=== PATIENT | male | born 1940 ===

== ENCOUNTER 2025-07-30 21:23 | Emergency (ER) | payer MEDICARE, SELFPAY ==
--- OUTSIDE RECORDS SUMMARY | 2025-02-23 10:15 | XMS_ITS ---
Author Organization Ruma Tuttle MD Address [address] [place] [phone] Care Team Providers Care General Hardware Salesperson Name Role Phone Ruma Tuttle Primary Care Provider [phone] REASON FOR VISIT Elevated renal labs Encounters Encounter Location Date Provider Diagnosis Ruma Tuttle MD [address] [place] [address] [place] [phone] 02/23/2025 Ruma Tuttle Plan Of Treatment Next Appt Details Provider Name:Ruma Tuttle , 08/03/2025 01:30:00 PM, [address] [place] [address], [place] [address], [place], [place], [phone], Progress Notes * Baltazar GONZALEZDOB: (85 yo M)Acc No.[id number]:02/23/2025 Progress Notes Patient: Baltazar STEEN Provider: Francisco Javier Tuttle MD :1940 A ge:85 Y S ex:Male Date:02/23/2025 Address:[address] [place] [address] Subjective: * Chief Complaints: * 1 . Elevated renal labs. * Medical History: Objective: * Vitals: Past Vitals:* 01/12/2025 Temp:96.8F, HR:80/min, BP: O wn Machine: 100/53 mm Hg,Sitting Right Arm: 114/56mm Hg, Wt: 179 lbs,172lbs, BMI:23.49Index, Ht:71.75in, Oxygen sat %:98% * 07/11/2024 Temp:96.0F, HR:82/min, BP:Si tting Right Arm: 118/54mm Hg, Wt:179.8lbs, BMI:24.55Index, Ht:71.75in, Oxygen sat %:98% * 03/03/2024 BP:Sitting Right Arm: 118/56 mm Hg, Wt:175.25lbs, BMI:23.93Index, Ht:71.75in Assessment: Plan: * Treatment: * Images: Billing Information: * Visit Code: * Procedure Codes: * Electronic signature of Chelly Tuttle MD on 07/30/2025 at 09:51 PM EST Sign off status: Pending * Provider: Francisco Javier Tuttle MD Date: 0 02/23/2025 Generated for Yasmany garcia/Manuela/Radha on: 1 09/29/2024 09:51 PM EST
--- OUTSIDE RECORDS SUMMARY | 2025-03-18 09:15 | XMS_ITS ---
Author Organization Ruma Tuttle MD Address [address] [place] [phone] Care Team Providers Care Strap Setter Name Role Phone Ruma Tuttle Primary Care Provider REASON FOR VISIT Elevated labs Encounters Encounter Location Date Provider Diagnosis Ruma Tuttle MD [address] [place] [address] [place] [phone] 03/18/2025 Ruma Tuttle Plan Of Treatment Next Appt Details Provider Name:Ruma Tuttle , 08/03/2025 01:30:00 PM, [address] [place] [address], [address], [phone], Progress Notes * Baltazar GONZALEZDOB: (85 yo M)Acc No.[id number]:03/18/2025 Progress Notes Patient: Baltazar STEEN Provider: Francisco Javier Tuttle MD :1940 A ge:85 Y S ex:Male Date:03/18/2025 Address:[address] [place] [address] Subjective: * Chief Complaints: * 1 . [...] 03/18/2025 Generated for Yasmany garcia/Manuela/Radha on: 1 09/29/2024 09:51 PM EST
--- NOTE | ~2025-07-30 | XR_ITS ---
CLINICAL HISTORY: index finger shut in car door 3 view left hand Comparison: None provided Findings: Linear oblique lucency of the distal phalanx of the 2nd digit. Associated soft tissue swelling. No erosions. No radiopaque foreign body. IMPRESSION: 1. Possible nondisplaced oblique fracture of the distal phalanx of the 2nd digit. This document has been electronically signed by: Yue Matos MD on 07/30/2025 22:35:45
[2025-07-30 21:30] VITALS: BP 145/60; PULSE 90; RESP 18; TEMP 36.1; O2SAT 97; BMI 23.4
--- OUTSIDE RECORDS SUMMARY | 2025-07-30 21:52 | XMS_ITS | Patient Health Record ---
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 Clerk Name Role Phone Ruma Tuttle Primary Care Provider [phone] Mari Tavares Unavailable [phone] Allergies No Known Allergies Results Component Value Reference Range Notes Vitamin D, [id number] Reviewed date:01/14/2025 06:50:40 PM Interpretation: Performing Lab:[facility], [place] [facility], Phone - [phone], Director - Silva Notes/Report: Vitamin D, 25-Hydroxy 19.1 30.0-100.0 ng/mL Vitamin D deficiency has been defined by the [place] of [employer] and an Endocrine Society practice guideline as a level of serum 25-OH vitamin D less than 20 ng/mL (1,2). The Endocrine Society went on to further define vitamin D insufficiency as a level between 21 and 29 ng/mL (2). 1. IOM ([place] of [employer]). 2010. Dietary reference intakes for calcium and D. [place]: The National Academies Press. 2. Alissa MF, Michael NC, Jo Ann-Gabriel RODRIGUES, et al. Evaluation, treatment, and prevention of vitamin D deficiency: an Endocrine Society clinical practice guideline. JCEM. 2010; 96(7):1911-30. Urinalysis, Complete-[id number] Reviewed date:01/14/2025 06:50:40 PM Interpretation: Performing Lab:[facility] [place], [address] [facility], [place], Phone - [phone], Director - Silva Notes/Report: Specific [place] 1.018 1.005-1.030 pH 5.5 5.0-7.5 Urine-Color Yellow Yellow Appearance Clear Clear WBC Esterase Negative Negative Protein Negative Negative/Trace Glucose Negative Negative Ketones Negative Negative Occult Blood Negative Negative Bilirubin Negative Negative Urobilinogen,Semi-Qn 0.2 0.2-1.0 mg/dL Nitrite, Urine Negative Negative Microscopic Examination Micr oscopic follows if indicated. Microscopic Examination See below: Micr oscopic was indicated and was performed. WBC None seen 0 - 5 /hpf RBC None seen 0 - 2 /hpf Epithelial Cells (non renal) None seen 0 - 10 /hpf Casts None seen None seen /lpf Bacteria None seen None seen/Few Hemoglobin [id number] Reviewed date:01/14/2025 06:50:40 PM Interpretation: Performing Lab:[facility] C[facility] [address] [place] [address], Phone - [phone], Director - MDLoredry Notes/Report: Hemoglobin A1c 5.7 4.8-5.6 % . Prediabetes: 5.7 - 6.4 Diabetes: >6.4 Glycemic control for adults with diabetes: <7.0 Cystatin C with eGFR-[id number] Reviewed date:01/14/2025 06:50:40 PM Interpretation: Performing Lab:[facility] [address] [place] [address], Phone - [phone], Director - Silva Notes/Report: Cystatin C 2.11 0.87-1.12 mg/L eGFR 26 >59 mL/min/1.73 Albumin/Creatinine Ratio,Uri ne-[id number] Reviewed date:01/14/2025 06:50:40 PM Interpretation: Performing Lab:[facility] [place] [address] [place] [address], Phone - [phone], Director - MDJodry Notes/Report: Creatinine, Urine 79.1 Not Estab. mg/dL Albumin, Urine 3.0 Not Estab. ug/mL Alb/Creat Ratio 4 0-29 mg/g creat Normal: 0 - 29 Moderately increased: 30 - 300 Severely increased: >300 Comp. Metabolic Panel (14)-3 [id number] Reviewed date:01/14/2025 06:50:40 PM Interpretation: Performing Lab:[facility] [place] [address] [place] [address], Phone - [phone], Director - MDJodry Notes/Report: Glucose 85 70-99 mg/dL BUN 45 8-27 mg/dL Creatinine 1.69 0.76-1.27 mg/dL eGFR 39 >59 mL/min/1.73 BUN/Creatinine Ratio 27 10-24 Sodium 136 134-144 mmol/L Potassium 5.2 3.5-5.2 mmol/L Chloride 104 96-106 mmol/L Carbon Dioxide, Total 17 20-29 mmol/L Calcium 9.5 8.6-10.2 mg/dL Protein, Total 6.6 6.0-8.5 g/dL Albumin 4.2 3.7-4.7 g/dL Globulin, Total 2.4 1.5-4.5 g/dL Bilirubin, Total 0.3 0.0-1.2 mg/dL Alkaline Phosphatase 88 44-121 IU/L AST (SGOT) 10 0-40 IU/L ALT (SGPT) 11 0-44 IU/L LP+Non-HDL Cholesterol-[id number] 5 Reviewed date:01/14/2025 06:50:40 PM Interpretation: Performing Lab:[facility] [place], [address] [place] [address], Phone - [phone], Director - Silva Notes/Report: Cholesterol, Total 184 100-199 mg/dL Triglycerides 113 0-149 mg/dL HDL Cholesterol 61 >39 mg/dL VLDL Cholesterol Jaret 20 5-40 mg/dL LDL Chol Calc (NIH) 103 0-99 mg/dL Non-HDL Cholesterol 123 0-129 mg/dL Immunofixation, Serum-[id number] Reviewed date:02/06/2025 01:47:45 PM Interpretation: Performing Lab:[facility] [place], [address] [place] [address], Phone - [phone], Director - Juany Notes/Report: Immunofixation Result, Serum The immunofixation pattern appears unremarkable. Evidence of monoclonal protein is not apparent. Immunoglobulin G, Qn, Serum 5903 573-0481 mg/d L Immunoglobulin A, Qn, Serum 276 61-437 mg/dL Immunoglobulin M, Qn, Serum 52 15-143 mg/dL Complement C4, Serum-[id number] Reviewed date:02/06/2025 01:47:45 PM Interpretation: Performing Lab:[facility] [place], [address] [place] [address], Phone - [phone], Director - Jodry Notes/Report: Complement C4, Serum 22 12-38 mg/dL Complement C3, Serum-[id number] Reviewed date:02/06/2025 01:47:45 PM Interpretation: Performing Lab:[email or web address] [place], [address] [place] [address], Phone - [phone], [facility] Notes/Report: Complement C3, Serum 110 82-167 mg/dL Immunofixation, Urine-[id number] Reviewed date:02/06/2025 01:47:46 PM Interpretation: Performing Lab:[facility] [place], [address] [place] [address], Phone - [phone], [facility] Notes/Report: YEISON Interpretation:U The immunofixation pattern appears unremarkable. Evidence of monoclonal protein is not apparent. CLAUDY by IFA Rfx Titer/Pattern -[id number] Reviewed date:02/06/2025 01:47:46 PM Interpretation: Performing [facility], [address] [place] [address], Phone - [phone], [facility] Notes/Report: CLAUDY by IFA Rfx Titer/Pattern Negative Negative <1:80 Borderline 1:80 Positive >1:80 ICAP nomenclature: AC-0 For more information about Hep-2 cell patterns use ANApatterns.org, the official website for the International Consensus on Antinuclear Antibody (CLAUDY) Patterns (ICAP). ANCA Profile (RDL)-[id number] Reviewed date:02/06/2025 01:47:46 PM Interpretation: Performing Lab:[facility], [address] [place] [address], Phone - [phone], [facility] Notes/Report: ANCA by IFA (RDL) Negative Negative Anti-MPO Ab (RDL) <20 <20 Units Anti-AK-3 Ab (RDL) 24 <20 Units US Renal Reviewed date:02/18/2025 06:36:49 PM Interpretation: Performing Lab: Notes/Report: Original Report PROCEDURE: US RENAL INDICATION: Chronic kidney disease stage 3B. TECHNIQUE: Ultrasound of the kidneys. COMPARISON: None Available. FINDINGS: The right kidney measures 10.6 cm in length. Renal cortical echotexture is increased. There is no hydronephrosis. There are no stones. There are multiple cysts with the largest located within the upper pole and measuring 3.0 x 2.4 x 2.5 cm. The left kidney measures 12.8 cm in length. Renal cortical echotexture is increased. There is no hydronephrosis. There are no stones. There are multiple cysts with the largest located within the lower pole and measuring 8.5 x 5.5 x 6.3 cm. The bladder is partially distended. IMPRESSION: Normal size kidneys. Increased echogenicity of the renal cortices most suggestive of intrinsic renal disease. No hydronephrosis. Bilateral renal cysts, the largest located within the left kidney and measuring 8.5 x 5.5 x 6.3 cm. Frankie Johnson MD Signed by Frankie Johnson MD Read by: FRANKIE JOHNSON II, MD Reviewed and Electronically Signed by: FRANKIE JOHNSON II, MD Urinalysis, Complete-[id number] Reviewed date:02/18/2025 06:36:48 PM Interpretation: Performing Lab:[facility] [place], [address] [facility], Phone - [phone], Director - Silva Notes/Report: Specific [place] 1.016 1.005-1.030 pH 6.0 5.0-7.5 Urine-Color Yellow Yellow Appearance Clear Clear WBC Esterase Negative Negative Protein Trace Negative/Trace Glucose Negative Negative Ketones Negative Negative Occult Blood Negative Negative Bilirubin Negative Negative Urobilinogen,Semi-Qn 0.2 0.2-1.0 mg/dL Nitrite, Urine Negative Negative Microscopic Examination Micr oscopic follows if indicated. Microscopic Examination See below: Micr oscopic was indicated and was performed. WBC None seen 0 - 5 /hpf RBC 0-2 0 - 2 /hpf Epithelial Cells (non renal) None seen 0 - 10 /hpf Casts None seen None seen /lpf Bacteria None seen None seen/Few Albumin/Creatinine Ratio,Uri ne-[id number] Reviewed date:02/18/2025 06:36:49 PM Interpretation: Performing Lab:[facility] [place], [address] [facility], [place], Phone - [phone], Director - MDJodry Notes/Report: Creatinine, Urine 73.4 Not Estab. mg/dL Albumin, Urine 10.3 Not Estab. ug/mL Alb/Creat Ratio 14 0-29 mg/g creat Normal: 0 - 29 Moderately increased: 30 - 300 Severely increased: >300 Comp. Metabolic Panel (14)-3 Reviewed date:02/18/2025 06:36:49 PM Interpretation: Performing Lab:[facility] [place], [address], [place], Phone - [phone], Director - Silva Notes/Report: Glucose 86 70-99 mg/dL BUN 29 8-27 mg/dL Creatinine 1.42 0.76-1.27 mg/dL eGFR 48 >59 mL/min/1.73 BUN/Creatinine Ratio 20 10-24 Sodium 140 134-144 mmol/L Potassium 4.7 3.5-5.2 mmol/L Chloride 106 96-106 mmol/L Carbon Dioxide, Total 21 20-29 mmol/L Calcium 9.4 8.6-10.2 mg/dL Protein, Total 6.5 6.0-8.5 g/dL Albumin 4.1 3.7-4.7 g/dL Globulin, Total 2.4 1.5-4.5 g/dL Bilirubin, Total 0.3 0.0-1.2 mg/dL Alkaline Phosphatase 95 44-121 IU/L AST (SGOT) 12 0-40 IU/L ALT (SGPT) 16 0-44 IU/L Reason For Referral No Information Medications Medication SIG (Take, Route, Frequency, Duration) Notes Start Date End Date Status Latanoprost 0.005 % PLACE 1 DROP IN EACH EYE AT BEDTIME Ophthalmic; Duration: 20 Active Farxiga 10 MG 1 tablet Orally Once a day; Duration: 30 day(s) 03/26/2025 09/22/2025 Active Dorzolamide HCl 2 % INSTILL 1 DROP IN TH E RIGHT EYE TWO TIMES A DAY Ophthalmic; Duration: 80 Active Valium 2 MG 1 tablet Orally Once a day; Duration: 14 days As needed 07/07/2025 Active Brimonidine-Dorzolamide 0.15-2 % as directed Ophthalmic Activ e Viagra 100 MG 1 tablet Orally Once a day; Duration: 10 days As needed Active Ramipril 10 MG 1 capsule Orally Onc e a day; Duration: 90 days Active amLODIPine Besylate 5 MG 1 tablet Orally Once a day; Duration: 30 days 02/26/2025 Active Immunizations Vaccine Route Administration Date Status Comme nts *Wxjegcctq-Nxcqfbt-Lrgp Dose-65+ IM Intramuscular 07/11/2024 Administered *Influenza-Medicare-AS Unknown 08/18/2019 Refused *Influenza-Medicare-AS IM Intramuscular 06/07/2021 Adminis tered *Influenza-Medicare-AS Unknown 06/05/2022 Refused *Influenza-Medicare-AS IM Intramuscular 06/26/2022 Adminis tered *Influenza-Quadrivalent IM Intramuscular 07/09/2023 Admini stered *PREVNAR 20 IM Intramuscular 07/11/2024 Administered *Tdap Unknown 08/30/2016 Administered COVID 19 (Pfizer 12+) Unknown 02/28/2022 Administered COVID COMIRNATY Pfizer Unknown 09/12/2023 Administered COVID-19 Pfizer BiValent Booster Unknown 06/02/2022 Administered BTNSX-25-Hqfzvi Vaccine Unknown 10/11/2020 Administered XRMVD-27-Qdtbkr Vaccine Unknown 11/01/2020 Administered XUHZQ-47-Qzwevd Vaccine Unknown 06/17/2021 Administered Influenza Unknown 07/07/2020 Administered Influenza-Afluria (IIV4) IM Intramuscular 08/17/2017 Admin istered Pneumococcal polysaccharide PCV 13 IM Intramuscular 11/20/2016 Administered Pneumococcal polysaccharide PPV23 IM Intramuscular 06/07/2021 Administered Social History Tobacco Use: Social History Observation Description Date Details (start date - stop date) Former Smoker NA - NA AUDIT-C (Standard) Question Answer Notes Did you have a drink contain ing alcohol in the past year? Yes How often did you have six o r more drinks on one occasion in the past year? Never (0 point) How many drinks did you have on a typical day when you were drinking in the past year? 1 or 2 drinks (0 point) How often did you have a dri nk containing alcohol in the past year? 2 to 3 times a week (3 points) Points 3 Interpretation Negative Tobacco Control (Standard) Question Answer Notes Tobacco use: Former smoker How long has it been since you last smoked? 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 Problem Anxiety disorder (327875361) Anxiety disorder, unspecified (F41.9) Active confirmed Problem Acute stress reaction (04523274) Acute stress reaction (F43.0) Active confirmed Problem Adjustment disorder with depressed mood (40535643) Adjustment disorder with depressed mood (F43.21) Active confirmed Problem Sensorineural hearing loss of bilateral ears (disorder) (635261143) Sensorineural hearing loss, bilateral (H90.3) Active confirmed Problem Chronic kidney disease due to hypertension (010555343004236) Hypertensive chronic kidney disease with stage 1 through stage 4 chronic kidney disease, or unspecified chronic kidney disease (I12.9) Active confirmed Problem Atrial premature depolarization (334299228) Atrial premature depolarization (I49.1) Active confirmed Problem Ventricular premature depolarization (019588828) Ventricular premature depolarization (I49.3) Active confirmed Problem Erectile dysfunction (disorder) (193758652) Male erectile dysfunction, unspecified (N52.9) Active confirmed Problem Family history of malignant neoplasm of prostate (535385989) Family history of malignant neoplasm of prostate (Z80.42) Active confirmed Problem Lower urinary tract symptoms due to benign prostatic hypertrophy (84866214748091) Benign prostatic hyperplasia with lower urinary tract symptoms (N40.1) Active confirmed Problem Prediabetes (573556585) Prediabetes (R73.03) Active confirmed Problem Chronic kidney disease stage 3A (disorder) (610641569) Chronic kidney disease, stage 3a (N18.31) Active confirmed Problem Chronic kidney disease stage 3B (disorder) (105702301) Chronic kidney disease, stage 3b (N18.32) Active confirmed Problem Chronic kidney disease stage 2 (394666100) Chronic kidney disease, stage 2 (mild) (N18.2) Inactive confirmed Problem Cellulitis of finger of right hand (4084672193841555 9) Cellulitis of right finger (L03.011) Problem resolved confirmed Vital Signs Heart Rate 97 /min 03/26/2025 Temperature 97.7 degrees Fahrenheit 03/26/2025 Blood pressure diastolic 50 mm Hg 03/26/2025 Oximetry 99 % 03/26/2025 Height 71.75 in 03/26/2025 Blood pressure systolic 122 mm Hg 03/26/2025 Weight 172 lbs 03/26/2025 BMI 23.49 kg/m2 03/26/2025 Encounters Encounter Location Date Provider Diagnosis Ruma Tuttle MD [address] [id number] 01/12/2025 Ruma Tuttle Hypertensive chronic kidney disease with stage 1 through stage 4 chronic kidney disease, or unspecified chronic kidney disease I12.9 ; Chronic kidney disease, stage 3a N18.31 ; Prediabetes R73.03 ; Mixed hyperlipidemia E78.2 and Vitamin D deficiency, unspecified E55.9 Ruma Tuttle MD [address] [id number] 02/26/2025 Ruma Tuttle Hypertensive chronic kidney disease with stage 1 through stage 4 chronic kidney disease, or unspecified chronic kidney disease I12.9 and Chronic kidney disease, stage 3a N18.31 Ruma Tuttle MD [address] [id number] 03/26/2025 Ruma Tuttle Hypertensive chronic kidney disease with stage 1 through stage 4 chronic kidney disease, or unspecified chronic kidney disease I12.9 and Chronic kidney disease, stage 3a N18.31 Ruma Tuttle MD [address] [id number] 10/08/2024 Ruma Tuttle Hypertensive chronic kidney disease with stage 1 through stage 4 chronic kidney disease, or unspecified chronic kidney disease I12.9 Ruma Tuttle MD [address] [id number] 10/30/2024 Mari Tuttle MD [address] [id number] 01/14/2025 Ruma Tuttle Chronic kidney disea se, stage 3b N18.32 and Hypertensive chronic kidney disease with stage 1 through stage 4 chronic kidney disease, or unspecified chronic kidney disease I12.9 Ruma Tuttle MD [address] [id number] 01/21/2025 Ruma Tuttle MD [address] [id number] 02/09/2025 Ruma Tuttle MD [address] [id number] 02/12/2025 Ruma Tuttle Chronic kidney disea se, stage 3a N18.31 Ruma Tuttle MD [address] [id number] 02/26/2025 Ruma Tuttle MD [address] [id number] 04/10/2025 Ruma Tuttle MD [address] [id number] 07/07/2025 Ruma Tuttle Assessments Encounter Date Diagnosis (ICD Code) Assessment Notes Treatment Notes Treatment Clinical Notes Section Notes 10/08/2024 Hypertensive chronic kidney disease with stage 1 through stage 4 chronic kidney disease, or unspecified chronic kidney disease (ICD-10 - I12.9) 01/12/2025 Hypertensive chronic kidney disease with stage 1 through stage 4 chronic kidney disease, or unspecified chronic kidney disease (ICD-10 - I12.9) Stable at present. He is having occasional low blood pressure at home. This is only about 3 times since last time. At the present time could consider cutting back medical therapy but he thinks he is doing okay as is and we will continue with current medical therapy. 02/12/2025 Chronic kidney disease, stage 3a (ICD-10 - N18.31) 02/26/2025 Hypertensive chronic kidney disease with stage 1 through stage 4 chronic kidney disease, or unspecified chronic kidney disease (ICD-10 - I12.9) His blood pressure had been stable prior to his acute decompensation in regards to his GFR. At this point his GFR is back to his baseline. He can resume chronic medical therapy but may be changed chlorthalidone to amlodipine to minimize volume depletion. He should return to a reasonable blood pressure and control of blood pressure within about 4 to 6 weeks 02/26/2025 Chronic kidney disease, stage 3a (ICD-10 - N18.31) His GFR is back to the high 40s. His GFR had deteriorated because he had read studies that taking NSAIDs at a dose of about 1300 mg/day would be beneficial in reducing stroke risk. However this probably resulted in NSAID associated nephropathy and acute decompensation of his GFR. Evaluation for autoimmune or vascular etiologies is unremarkable and therefore this is NSAID associated acute kidney injury. He had has improved and resolved off NSAIDs and recommend he stay off NSAIDs. Continue to control hypertension as main comorbidity 03/26/2025 Hypertensive chronic kidney disease with stage 1 through stage 4 chronic kidney disease, or unspecified chronic kidney disease (ICD-10 - I12.9) His blood pressure readings from home are reviewed. They are still slightly elevated but today in the office his blood pressure is much better. At this present time can continue current medical therapy and adjust medical therapy for his GFR 03/26/2025 Chronic kidney disease, stage 3a (ICD-10 - N18.31) His GFR has improved. However it still in the 40s. Recommend SGLT2 as adjunct therapy for his hypertension as well as for GFR preservation 01/12/2025 Chronic kidney disease, stage 3a (ICD-10 - N18.31) His GFR has decreased in the 40s. This may be artifactual based on his chlorthalidone or it may be true. His weight loss and muscle loss may also be contributing to this. Can reevaluate status in use of cystatin-c as a additional lab test to evaluate true GFR 01/14/2025 Chronic kidney disease, stage 3b (ICD-10 - N18.32) 01/14/2025 Hypertensive chronic kidney disease with stage 1 through stage 4 chronic kidney disease, or unspecified chronic kidney disease (ICD-10 - I12.9) 01/12/2025 Prediabetes (ICD-10 - R73.03) Stable on prior labs as reviewed. He continues to exercise. Recheck status 01/12/2025 Mixed hyperlipidemia (ICD-10 - E78.2) Stable at present. His prior labs revealed that his LDL was greater than 100. At this point there may be no benefit in primary prevention strategy at this age. 01/12/2025 Vitamin D deficiency, unspecified (ICD-10 - E55.9) Fair control and prior labs reviewed. Recommend vitamin D supplementation for goal level of 30+ 01/12/2025 Other This note was created with voice dictation recognition software and may contain errors of grammar and syntax. Also labs were reviewed with patient. 02/26/2025 Other This note was created with voice dictation recognition software and may contain errors of grammar and syntax. Also labs were reviewed with patient. 03/26/2025 Other This note was created with voice dictation recognition software and may contain errors of grammar and syntax. Also labs were reviewed with patient. Plan Of Treatment Pending Test Test Name Order Date Ultrasound : Urine Bladder PostVoid Duglas ure 05/01/2018 25OH VITAMIN D 09/13/2021 COMPLETE CBC WITH DIFF 09/13/2021 COMPLETE URINALYSIS 09/13/2021 COMPREHENSIVE METABOLIC PANEL 09/13/2021 HEMOGLOBIN A1C 09/13/2021 LIPID PANEL W REFLEX TO DLDL 09/13/2021 URINALYSIS 05/01/2018 CT Abdomen Pelvis WO Cont 12/27/2022 Future Test Test Name Order Date PSA 05/11/2019 Next Appt Details Provider Name:Ruma Parag , 08/03/2025 01:30:00 PM, [address] [place] [address], [place] [address], [place], [place], [phone], Insurance Providers Payer Name Payer Address Payer Phone Subscriber Number Group Number Insured Name Patient Relationship to Insured Coverage Start Date Coverage End Date MEDICARE [address] [place] [phone] [id number] Baltazar Hatr Self - patient is the insured [facility] [employer] [address] [place] [address] [id number] Baltazar Hart Self - patient is the insured Medical (General) History Medical History History ICD Code Essential (primary) hypertension I10 Cellulitis of right finger (resolved ) undefined Surgical History Surgery Date(Month/Year) Hernia repair cataract-lens implants bilateral laser eye surgery Hospitalization History Reason Date(Month/Year)
--- OUTSIDE RECORDS SUMMARY | 2025-07-30 21:52 | XMS_ITS | Clinical Summary ---
Author Organization [facility] Address [address] [address] Phone Care Team Providers Care Buckle Assembler Name Role Phone Cassandra Tuttle MD Primary Care Provider [phone] Allergies No known active allergies Medications cephalexin (KEFLEX) 500 MG capsule Take 1 capsule (500 mg total) by mouth 3 (three) times a day. 21 capsule 1 Active Additional Information Patient not taking.Reported on 06/06/2021 ramipriL (ALTACE) 10 MG capsule Take 10 mg by mouth daily. Active aspirin 81 MG EC tablet Take 162 mg by mouth daily. Active cephalexin (KEFLEX) 500 MG capsule Take 1 capsule (500 mg total) by mouth 3 (three) times a day. 21 capsule 1 Active Active Problems No known active problems Social History Tobacco Use Types Packs/Day Years Used Date Smoking Tobacco: Former Smokeless Tobacco: Never Tobacco Cessation:Counseling Given: Not Answered Alcohol Use Standard Drinks/Week Comments Yes 0 (1 standard drink = 0.6 oz pur e alcohol) Education Answer Date Recorded Are you interested in more education? Not on sanket e 01/05/2023 Are you concerned about learning? Not on file 01/05/2023 No 01/05/2023 No 01/05/2023 Digital Access Answer Date Recorded No 02/05/2023 No 02/05/2023 No 02/05/2023 Reliable internet access at home? Not on file 02/05/2023 Device with a working camera? Not on file Intimate Partner Violence Answer Date R ecorded Are you denied basic needs s uch as food, clothing, or medical care? No 12/28/2022 In the past 12 months have y ou been in a relationship with a person who hurts, threatens, or tries to control you? No 12/28/2022 Are you denied basic needs s uch as food, clothing, or medical care? No 12/28/2022 In the past 12 months have y ou been in a relationship with a person who hurts, threatens, or tries to control you? No 12/28/2022 Sex and Gender Information Value Date Recorded Sex Assigned at Male 06/06/2021 8:01 AM EDT Legal Sex Male 10:13 PM EDT Gender Identity Male 06/06/2021 8:01 AM EDT Sexual Orientation Straight 12/28/2022 9: 04 PM EDT Last Filed Vital Signs Vital Sign Reading Time Taken Comments Blood Pressure 159/76 12/29/2022 12:13 AM EDT Pulse 70 12/29/2022 12:13 AM EDT Temperature 36.4 C (97.5 F) 12/29/2022 12:13 AM EDT Respiratory Rate 16 12/29/2022 12:13 AM EDT Oxygen Saturation 95% 12/29/2022 12:13 AM EDT Inhaled Oxygen Concentration - - Weight 84.4 kg (186 lb) 12/28/2022 9:05 PM EDT Height 175.3 cm (5' 9 ) 12/28/2022 9:05 PM EDT Body Mass Index 27.47 12/28/2022 9:05 PM EDT Plan of Treatment Health Maintenance Due Date Last Done Comments CREATININE LEVEL 1940 POTASSIUM LEVEL 1940 DEPRESSION SCREENING 1950 ZOSTER VACCINES (1 of 2) 01/05/1988 RSV VACCINE (1 - 1-dose 75+ series) 2013 PNEUMOCOCCAL VACCINES (50+ years) (2 of 2 - PCV) 06/07/2022 06/07/2021 INFLUENZA VACCINE (#1) 2025 , 06/18/2020 COVID-19 VACCINE (4 - 2024-2 6 season) 2025 06/17/2021, 11/01/2020, 10/11/2020 Adult Td,Tdap Booster 08/30/2026 08/30/2016 HEPATITIS A VACCINES Aged Out 08/30/2016, 10/30/2012 No longer eligible based on patient's age to complete this topic HIB VACCINES Aged Out No longer eligi ble based on patient's age to complete this topic MENINGOCOCCAL VACCINES (ACWY) Aged Out No longer eligible based on patient's age to complete this topic MENINGOCOCCAL VACCINES (B) Aged Out N o longer eligible based on patient's age to complete this topic Medical Devices Not on file Insurance [place] [id number] [employer] MEDEX SUPPLEMENT MEDICARE PART A & B [employer] MEDEX SUPPLEMENT MEDICARE PART A & B [employer] MEDEX SUPPLEMENT MEDICARE PART A & B [employer] MEDEX SUPPLEMENT MEDICARE PART A & B [employer] MEDEX SUPPLEMENT MEDICARE PART A & B [employer] MEDEX SUPPLEMENT MEDICARE PART A & B [employer] MEDEX SUPPLEMENT MEDICARE PART A & B [employer] MEDEX SUPPLEMENT MEDICARE PART A & B [employer] MEDEX SUPPLEMENT Care Teams Buckle Assembler Relationship Specialty Start Date End Date Cassandra Tuttle MD [address] [address] [email or web address] PCP - General Internal Medicine 01/31/21 Additional Source Comments The information contained in this document represents components of the legal health record. It is not the complete legal health record.[facility]
[2025-07-30 22:06] VITALS: BP 170/87; PULSE 88; RESP 16; TEMP 36.7; O2SAT 96
--- NOTE | 2025-07-30 23:44 | ED.EXTPRO ---
HPI - Extremity Problem General Chief complaint: Extremity Injury, Upper Stated complaint: Finger Injury L Hand Time Seen by Provider: 07/30/25 23:43 Source: patient Mode of arrival: ambulatory Limitations: no limitations History of Present Illness ED Provider: Geovani HEADLEY HPI Narrative: The patient is an 85-year-old male who slammed his index finger in a car door that fully latched and required reopening. He noted an immediate sharp pain and a cut over the finger. Pain improved markedly after taking acetaminophen (Tylenol) upon arrival, which also helped bring down the swelling. He denies taking any blood thinners. Tdap is up-to-date. Related Data Previous Rx's ?Medication ?Instructions ?Recorded cephalexin 500 mg capsule 500 mg PO BID #14 caps 07/31/25 Allergies Allergy/AdvReac Type Severity Reaction Status Date / Time No Known Allergies Allergy Verified 07/30/25 21:31 Review of Systems Review of Systems: Yes all other systems are reviewed and are negative Physical Exam Vital Signs: Vital Signs: Last Vital Signs Temp 98.0 F 07/31/25 01:43 Pulse 88 07/31/25 01:43 Resp 16 07/31/25 01:43 BP 170/87 H 07/31/25 01:43 Pulse Ox 96 07/31/25 01:43 O2 Del Method Room Air 07/31/25 01:43 BMI result Body Mass Index 23.4 CONSTITUTIONAL: The patient appears non-toxic, well nourished and in no acute distress. Vital signs as documented. HEAD: Atraumatic, normocephalic. EYES: EOMs grossly intact, pupils equal, conjunctiva clear, no exudate. ENT: Nares patent, no discharge. Airway patent, no audible stridor, visible mucosa is pink and moist without noted lesions. NECK: trachea is midline, no obvious masses or gross abnormalities. CHEST: Symmetric movement, normal appearance. LUNGS: Non-labored work of breathing. CARDIAC: No evidence of hypoperfusion. ABDOMEN: Nondistended, no obvious injury. : Deferred. EXTREMITIES: There is a 1.5 cm oblique laceration to the pad of the distal phalanx of the 2nd left digit, hemostasis noted. Distal CSM intact. No involvement of the cuticle. Moves all other extremities spontaneously without reported pain. No obvious injury or deformity noted. NEURO: Alert and oriented x3, CN II-XII appear grossly intact. Cerebellar Functioning grossly intact. Speech clear and appropriate. SKIN: Warm, dry, color appropriate. No rashes or lesions noted. Medications Administered Discontinued Medications Generic Name Dose Route Start Last Admin Trade Name José Miguel PRN Reason Stop Dose Admin Acetaminophen 975 mg 07/30/25 22:10 07/30/25 22:15 Acetaminophen 325 Mg Tablet PO 07/30/25 22:11 975 mg ONCE ONE Administration Cephalexin HCl 500 mg 07/31/25 00:18 07/31/25 00:35 Cephalexin 500 Mg Capsule PO 07/31/25 00:19 500 mg ONCE ONE Administration Lidocaine HCl 5 ml 07/31/25 00:18 07/31/25 00:39 Lidocaine Hcl 1 % Mpf 5 Ml Vial INFILTRATI 07/31/25 00:19 5 ml ONCE ONE Administration Medical Decision Making Medical Decision Making MDM Narrative: 12:29 AM 07/31/2025 (Jose HEADLEY): 85-year-old male who slammed his index finger in a car door that fully latched and required reopening. He noted an immediate sharp pain and a cut over the finger. Pain improved markedly after taking acetaminophen (Tylenol) upon arrival, which also helped bring down the swelling. He denies taking any blood thinners. Tdap is up-to-date. On exam the patient has a 1.5 cm oblique laceration to the pad of the distal phalanx of the left 2nd digit. Hand X-ray obtained in the ED shows a small, nondisplaced oblique fracture of the distal phalanx of the index finger that follows the curvature of the laceration. Admission/Observation Consideration of admission/observation: Escalation of care including admission/observation considered Radiology Impression Discussion of test interpretation with radiology: I have reviewed the radiologist's reading. Radiologist Impression: 3 view left hand Comparison: None provided Findings: Linear oblique lucency of the distal phalanx of the 2nd digit. Associated soft tissue swelling. No erosions. No radiopaque foreign body. IMPRESSION: 1. Possible nondisplaced oblique fracture of the distal phalanx of the 2nd digit. This document has been electronically signed by: Yue Matos MD on 07/30/2025 22:35:45 Prescription Management I considered prescription management with: Pain Medication and Antibiotic Procedures Laceration Laceration 1: Site: hand Side (If applicable): left Size (cm): 1.5 Description: linear and clean Depth: simple, single layer Local Anesthetic: lidocaine 1% (Digital Block) Amount of anesthesia used (mL): 5 Pre-repair: wound explored, irrigated extensively and deep structures intact Skin layer closed with: nylon Size (cm): 4-0 Number of sutures: 4 Technique: simple, interrupted Discharge Plan Discharge Clinical Impression: Crushing injury of finger of left hand Fracture of finger, left, open Qualifiers: Encounter type: initial encounter Finger: index finger Phalanx: distal Fracture alignment: nondisplaced Qualified Code(s): S62.661B - Nondisplaced fracture of distal phalanx of left index finger, initial encounter for open fracture Laceration of finger of left hand Qualifiers: Encounter type: initial encounter Finger: index finger Damage to nail status: without damage Foreign body presence: without foreign body Qualified Code(s): S61.211A - Laceration without foreign body of left index finger without damage to nail, initial encounter Patient Disposition: Home, Self-Care Instructions: Laceration (ED), Finger Fracture (ED), Crush Injury (ED) Additional Instructions: Thank you for choosing [facility]'s Emergency Department for your care today. Your x-ray today unfortunately shows that your crush injury resulted in both a laceration and a fracture of the distal phalanx of your left index finger. Your laceration was repaired with nonabsorbable sutures which will need to be removed in 5-7 days. Please return to the emergency department or follow-up with your primary care provider for removal of sutures. Please apply bacitracin and a clean dry dressing to the laceration twice daily for the first 2-3 days. Then please keep the area clean and dry, to allow the laceration to heal. While it is perfectly acceptable to allow water to run over the sutures while showering, please do not swim, or submerge the laceration in standing water until the sutures are removed. Please wear the finger splint provided as much as possible to reduce the risk of recurrent injury to the nondisplaced fracture of your finger. Please follow up with the orthopedic clinic for re-evaluation of your fracture and additional management as indicated. Due to the combination of laceration and fracture, we are treating you prophylactically with cephalexin, please take this twice daily as prescribed until finished. You should take Tylenol 1000mg every 6 hours as needed for any additional pain. Please rest the injured area, and apply ice for 20 minutes every hour. Please also follow up with your primary care provider for re-evaluation, additional management of your symptoms, and continued preventative care. If you do not have a primary care physician, please call the [facility] at [phone] to establish a new primary care physician. While waiting to establish your new primary care physician, you can call our Walk-in Care Clinic at [phone] for non-emergency needs. Please return to the emergency department if you develop any uncontrollable bleeding, re-opening of your wound, redness advancing >1-2 cm away from your wound, or white milky discharge from your wound. Please also return if you experience any other new or worsening symptoms or concerns. Prescriptions: New cephalexin 500 mg capsule 500 mg PO BID Qty: 14 0RF Referrals: [facility] Orthopedic Surgeons [Provider Group] Clinical Impression: Crushing injury of finger of left hand; Fracture of finger, left, open Interventions: ED Discharge Assessment Last Done: 07/31/25 01:43 Discharge Date/Time: 07/31/25 01:43 Print Language: Unknown
[2025-07-31] MEDS: Lidocaine HCl 1 % MPF 5 ML VIAL INFILTRATI (00:39)
[2025-07-31 01:43] VITALS: BP 170/87; PULSE 88; RESP 16; TEMP 36.7; O2SAT 96
== END 2025-07-31 01:43 | disposition home or self-care (01) ==
PROVIDERS: Emergency Provider Emergency Medicine; PCP Internal Medicine
DX: S67.22XA Crushing injury of left hand, initial encounter (principal); S61.412A Laceration without foreign body of left hand, initial encounter; W23.2XXA Caught, crushed, jammed or pinched between a moving and stationary object, initial encounter; Y93.9 Activity, unspecified; Y92.9 Unspecified place or not applicable; Y99.9 Unspecified external cause status
CPT/HCPCS: 12001; 73130; 99284; J2003

== ENCOUNTER → 2025-07-30 21:59 | Outpatient (BNV) | payer MEDICARE, SELFPAY | PROVIDERS: PCP Internal Medicine; Visit Provider Student in an Organized Health Care Education/Training Program | DX: M79.645 Pain in left finger(s) (principal); W23.0XXA Caught, crushed, jammed, or pinched between moving objects, initial encounter | CPT/HCPCS: 73130 ==

== ENCOUNTER 2025-08-03 13:27 | Outpatient (REF) | payer MEDICARE, SELFPAY ==
--- NOTE | ~2025-08-03 | XR_ITS ---
EXAMINATION: XR HAND 3 OR MORE VIEWS LEFT HISTORY: M79.642 - Pain in left hand COMPARISON: Comparison is made with the prior examination dated 07/30/2025. FINDINGS: Three views of the left hand are submitted. Osseous mineralization is normal. Again seen is a nondisplaced fracture of the distal phalanx of the index finger. No additional fracture or dislocation is seen. The joint spaces are preserved. The soft tissues are unremarkable. XR/XR hand LT min 3V IMPRESSION: Nondisplaced fracture of the distal phalanx of the index finger. Electronically signed by: Jhonatan Cisse MD 08/03/2025 03:24 PM [facility]
--- OUTSIDE RECORDS SUMMARY | 2025-08-03 18:08 | XMS_ITS | Clinical Summary ---
Author Organization [facility] Address [address] [address] Phone Care Team Providers Care Night Shift Name Role Phone Cassandra Tuttle MD Primary Care Provider [phone] Allergies No known active allergies Medications cephalexin [...] [place] [id number] [employer] MEDICARE PART A & B [employer] MEDICARE PART A & B [employer] SU[employer] MEDICARE PART A & B [employer] MEDICARE PART A & B [employer] SU[employer] MEDICARE PART A & B [employer] MEDICARE PART A & B [employer] MEDICARE PART A & B [employer] MEDICARE PART A & B [employer] Care Teams Night Shift Relationship Specialty Start Date End Date Cassandra Tuttle MD [address] [address] [email or web address] PCP - General Internal Medicine 01/31/21 Additional Source Comments The information contained in this document represents components of the legal health record. It is not the complete legal health record.[facility]
== END 2025-08-03 13:28 | disposition home or self-care (01) ==
LOC: HO.HOSX 13:27
DX: S62.631B Displaced fracture of distal phalanx of left index finger, initial encounter for open fracture (principal); W23.0XXA Caught, crushed, jammed, or pinched between moving objects, initial encounter
CPT/HCPCS: 73130; 99202

== ENCOUNTER → 2025-08-03 14:49 | Outpatient (BNV) | payer MEDICARE, SELFPAY | PROVIDERS: Visit Provider Radiology Diagnostic Radiology | DX: M79.642 Pain in left hand (principal) | CPT/HCPCS: 73130 ==

== ENCOUNTER 2025-08-03 14:56 | Outpatient (AMB) | payer MEDICARE, SELFPAY ==
[2025-08-03 14:58] VITALS: BMI 23.3
--- NOTE | 2025-08-03 14:58 | MHC.OFFVIS ---
Vital Signs 08/03/25 14:58 Height 6 ft Weight 172 lb BMI 23.3 Intake Visit Reasons: OV- ER F/U Lt finger splint Intake Note: Baltazar is an 85 year old ambidextrous male who presents today for an ED Follow Up status post Left Index Distal Phalanx Fracture, DOI: 07/30/25. Patient presented to [facility] ED reporting his finger got stuck in a car door that fully latched and required reopening. Sutures were placed. Patient reports he continues taking his antibiotics. He denies any pain today. He denies any numbness, tingling, finger locking. Allergies No Known Allergies Allergy (Verified 08/03/25 15:12) HPI HPI OV- ER F/U Lt finger splint: Details: Baltazar is an 85 year old ambidextrous male who presents today for an ED Follow Up status post Left Index Distal Phalanx Fracture, DOI: 07/30/25. Patient presented to [facility] ED reporting his finger got stuck in a car door that fully latched and required reopening. Patient did have a laceration noted of the left index finger Sutures were placed. Patient reports he continues taking his antibiotics. He denies any pain today. He denies any numbness, tingling, finger locking. [facility] Surgical History (Updated 08/03/25 @ 15:14 by JODI Woods) History of ankle surgery Social History (Updated 08/03/25 @ 15:13 by JODI Woods) Alcohol intake: current Alcohol intake frequency: a few times a month Patient Tobacco Use Status: Former Tobacco user Current occupation: ambidextrous Review of Systems Const All systems reviewed & are unremarkable except as noted in HPI and below Physical Exam Vital Signs: BMI result Body Mass Index 23.3 Extrem Other: Patient is alert, oriented, and in no acute distress. Neuro: Normal sensation of the tips of all digits of the left hand at this time Vascular: Cap refill brisk Pain: No tenderness to palpation about distal phalanx of left index finger No pain with range of motion of the left hand ROM: Patient is able to make a closed fist and extend all digits of the left hand fully, including left index finger Skin: Approximately 3 cm in length laceration noted of the volar aspect of the pad of the left index finger, with sutures in place No erythema or evidence of infection. General: No ecchymosis, erythema, or evidence of infection. Psych: Appears grossly normal Affect normal Attitude cooperative Office Procedures AMB Fracture Care Fracture Billing Code: Fracture Billing Code Results Reviewed Results Reviewed: X-rays obtained in the office today and independently reviewed by me, Toby Sarmiento PA-C, demonstrate nondisplaced fracture of the distal tuft of the left index finger distal phalanx. Assessment & Plan Assessment & Plan (1) Open fracture of distal phalanx of left index finger: Code(s): S62.631B - Displaced fracture of distal phalanx of left index finger, initial encounter for open fracture Category: Medical Plan 1. Open distal tuft fracture of the left index finger Date of injury 07/30/25 Patient is educated about this injury Patient is educated about the typical recovery course Antibiotics refilled at this time Patient is provided with a fingertips splint to be worn for the next week when is in the dressing Patient is educated on daily dressing changes and washing the laceration site with soap and water in the sink or the shower Continue taking antibiotics as prescribed Small area of antibiotic ointment should be applied to the laceration site prior to dressing Follow-up in 1 week for suture removal, sooner with any acute concerns Orders: Orders XR hand LT min 3V Today M79.642 - Pain in left hand Medications: Refilled cephalexin 500 mg PO BID 14 caps 0RF Coding Level of Care Code Est Pt Level 3 (69655) Diagnoses Open fracture of distal phalanx of left index finger S62.631B CPT Codes Fracture Care - Fracture Billing Code: Fracture Billing Code ([id number])
== END 2025-08-03 15:51 | disposition home or self-care (01) ==
LOC: HO.HOS 14:57
PROVIDERS: PCP Internal Medicine
DX: S62.631B Displaced fracture of distal phalanx of left index finger, initial encounter for open fracture (principal)
CPT/HCPCS: 99203

== ENCOUNTER 2025-08-10 15:08 | Outpatient (REF) | payer MEDICARE, SELFPAY ==
--- NOTE | ~2025-08-10 | XR_ITS ---
EXAMINATION: XR FINGER, LEFT CLINICAL INFORMATION: S62.631B - Displaced fracture of distal phalanx of left index finger, in... COMPARISON: 08/03/2025, 07/30/2025. TECHNIQUE: Three views of the left second digit. FINDINGS: Again noted is a nondisplaced fracture of the distal phalanx of the index finger involving the tuft. Fracture lines are less distinct and there is increased sclerosis present suggesting healing. The joints appear normal. There is persistent soft tissue swelling of the distal second digit. XR/XR finger LT min 2V IMPRESSION: Healing nondisplaced fracture of the distal phalanx of the second digit. Electronically signed by: Geovani Willoughby MD 08/10/2025 03:32 PM [facility]
--- OUTSIDE RECORDS SUMMARY | 2025-08-10 18:17 | XMS_ITS | Clinical Summary ---
Author Organization [facility] Address [address] [address] Phone Care Team Providers Care System Safety Engineer Name Role Phone Cassandra Tuttle MD Primary Care Provider [phone] Allergies No known active allergies Medications cephalexin [...] [place] [id number] [employer] MEDEX SUPPLEMENT [employer] Address: [facility] [id number] [place] [address] MEDICARE PART A & B [employer] MEDEX SUPPLEMENT MEDICARE PART A & B [employer] MEDEX SUPPLEMENT MEDICARE PART A & B [employer] SUPPLEMENT MEDICARE PART A & B [employer] MED[employer] SUPPLEMENT MEDICARE PART A & B [employer] SU[employer]MENT MEDICARE PART A & B [employer] SUPPLEMENT MEDICARE PART A & B [employer] SU[employer]LEMENT MEDICARE PART A & B [employer] SU[employer] Care Teams System Safety Engineer Relationship Specialty Start Date End Date Cassandra Tuttle MD [address] [address] [email or web address] - General Internal Medicine 01/31/21 Additional Source Comments The information contained in this document represents components of the legal health record. It is not the complete legal health record.[facility]
== END 2025-08-10 15:09 | disposition home or self-care (01) ==
LOC: HO.HOSX 15:08
DX: S62.631D Displaced fracture of distal phalanx of left index finger, subsequent encounter for fracture with routine healing (principal)
CPT/HCPCS: 73140; 99212

== ENCOUNTER 2025-08-10 15:18 | Outpatient (AMB) | payer MEDICARE, SELFPAY ==
[2025-08-10 15:28] VITALS: BMI 23.3
--- NOTE | 2025-08-10 15:28 | MHC.OFFVIS ---
Vital Signs 08/10/25 15:28 Height 6 ft Weight 172 lb BMI 23.3 Intake Visit Reasons: OV: LT IF Distal Phalanx Fx, DOI: 07/30/25 w/ xray Intake Note: Baltazar is an 85 year old ambidextrous male who presents today for Suture Removal status post Left Index Open Distal Tuft Fracture, DOI: 07/30/25. At his last visit, he was provided with a fingertips splint to be worn for the next week when is in the dressing. He was educated on proper wound dressing, washing the site with soap and water, and applying a small amount of antibiotic ointment. He was advised to continue taking his Cephalexin. Today, patient reports he is doing well. Sutures removed in office and steri strips applied. 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 At his last visit, he was provided with a fingertips splint to be worn for the next week when is in the dressing. He was educated on proper wound dressing, washing the site with soap and water, and applying a small amount of antibiotic ointment. He was advised to continue taking his Cephalexin. Today, patient reports he is doing well. Denies any ongoing pain in the left index finger. Patient states he has no symptoms of infection. Sutures removed in office and steri strips applied. [facility] Surgical History (Updated 08/03/25 @ 15:14 by JODI Woods) History of ankle surgery Social History (Updated 08/03/25 @ 15:13 by JODI Woods) Alcohol intake: current Alcohol intake frequency: a few times a month Patient Tobacco Use Status: Former Tobacco user Current occupation: ambidextrous Review of Systems Const All systems reviewed & are unremarkable except as noted in HPI and below Physical Exam Vital Signs: BMI result Body Mass Index 23.3 Extrem Other: Patient is alert, oriented, and in no acute distress. Neuro: Normal sensation of the tips of all digits of the left hand at this time Vascular: Cap refill brisk Pain: No tenderness to palpation about distal phalanx of left index finger No pain with range of motion of the left hand ROM: Patient is able to make a closed fist and extend all digits of the left hand fully, including left index finger Skin: Approximately 3 cm in length laceration noted of the volar aspect of the pad of the left index finger, with sutures in place. Healing well, no signs or symptoms of infection No erythema or evidence of infection. General: No ecchymosis, erythema, or evidence of infection. Psych: Appears grossly normal Affect normal Attitude cooperative Results Reviewed Results Reviewed: X-rays obtained in the office today and independently reviewed by me, Toby Sarmiento PA-C, demonstrate nondisplaced fracture of the distal tuft of the left index finger distal phalanx with some evidence of early interval bony healing. Assessment & Plan Assessment & Plan (1) Open fracture of distal phalanx of left index finger: Code(s): S62.631B - Displaced fracture of distal phalanx of left index finger, initial encounter for open fracture Category: Medical Plan 1. Open distal tuft fracture of the left index finger Date of injury 07/30/25 Patient is educated about this injury Patient is educated about the typical recovery course Finish current antibiotics, no further refills indicated at this time Fingertips splint to be worn with daytime activities Sutures removed, Steri-Strips applied without issue Continue taking antibiotics as prescribed Small area of antibiotic ointment should be applied to the laceration site prior to dressing Splint when out and about, may remove splint to work on gentle range of motion while at home and at rest with the left index finger Patient does request follow-up with Dr. Parr in 2 weeks for discussion of when he can begin playing the piano again Follow-up in [address] Parr for reassessment, with x-rays, sooner with any acute concerns Orders: Orders XR finger LT min 2V Today S62.631B - Displaced fracture of distal phalanx of left index finger, initial encounter for open fracture Coding Level of Care Code Global (56084) Diagnoses Open fracture of distal phalanx of left index finger S62.631B
== END 2025-08-10 16:00 | disposition home or self-care (01) ==
LOC: HO.HOS 15:19
PROVIDERS: PCP Internal Medicine
DX: S62.631B Displaced fracture of distal phalanx of left index finger, initial encounter for open fracture (principal)
CPT/HCPCS: 99213

== ENCOUNTER → 2025-08-10 15:20 | Outpatient (BNV) | payer MEDICARE, SELFPAY | PROVIDERS: Visit Provider Radiology Diagnostic Radiology | DX: S62.667D Nondisplaced fracture of distal phalanx of left little finger, subsequent encounter for fracture with routine healing (principal) | CPT/HCPCS: 73140 ==

== ENCOUNTER 2025-08-25 10:29 | Outpatient (AMB) | payer MEDICARE, SELFPAY ==
--- OUTSIDE RECORDS SUMMARY | 2025-02-23 10:15 | XMS_ITS ---
Author Organization Ruma Tuttle MD Address [address] [place] [phone] Care Team Providers Care Quality Assurance Supervisor Body Name Role Phone Ruma Tuttle Primary Care Provider REASON FOR VISIT Elevated renal labs Encounters Encounter Location Date Provider Diagnosis Ruma Tuttle MD [address] [place] [address] [place] [phone] 02/23/2025 Ruma Tuttle Plan Of Treatment Next Appt Details Provider Name:Ruma Tuttle , 02/16/2026 02:00:00 PM, [address] [place] [address], [phone], Provider Name:Ruma Tuttle , 08/31/2026 02:00:00 PM, [address] [place] [address], [phone], Progress Notes * Baltazar GONZALEZDOB: (85 yo M)Acc No.[id number]:02/23/2025 Progress Notes Patient: Nisreen PRADEEPBaltazar ANTONY Provider: Francisco Javier Tuttle MD :1940 A ge:85 Y S ex:Male Date:02/23/2025 Address:[address] [place] [address] Subjective: * Chief Complaints: * 1 . [...] Electronic signature of Chelly Tuttle MD on 08/25/2025 at 01:11 PM EST Sign off status: Pending * Provider: Francisco Javier Tuttle MD Date: 0 02/23/2025 Generated for Yasmany garcia/Manuela/Radha on: 1 10/26/2024 01:11 PM EST
--- OUTSIDE RECORDS SUMMARY | 2025-03-18 09:15 | XMS_ITS ---
Author Organization [facility] Address [address] [place] [phone] Care Team Providers Care Medical Grade Shoemaker Name Role Phone Ruma Tuttle Primary Care Provider REASON FOR VISIT Elevated labs Encounters Encounter Location Date Provider Diagnosis Ruma Tuttle MD [address] [place] [address] [place] [phone] 03/18/2025 Ruma Tuttle Plan Of Treatment Next Appt Details Provider Name:Ruma Tuttle , 02/16/2026 02:00:00 PM, [address] [place] [address], [phone], Provider Name:Ruma Tuttle , 08/31/2026 02:00:00 PM, [address] [place] [address], [phone], Progress Notes * Baltazar GONZALEZDOB: (85 yo M)Acc No.[id number]:03/18/2025 Progress Notes Patient: Baltazar STEEN Provider: Francisco Javier Tuttle MD :1940 A ge:85 Y S ex:Male Date:03/18/2025 Address:[address] [place] [address] Subjective: * Chief Complaints: * 1 . Elevated labs. * Medical History: Objective: * Vitals: Past Vitals:* 02/26/2025 Temp:96.9F, HR:69/min, BP:Si tting Right Arm:160/80mm Hg, Wt:172lbs, BMI:23.49Index, Ht:71.75in, Oxygen sat %:98% * 01/12/2025 Temp:96.8F, HR:80/min, BP: O wn Machine: 100/53 mm Hg,Sitting Right Arm: 114/56mm Hg, Wt: 179 lbs,172lbs, BMI:23.49Index, Ht:71.75in, Oxygen sat %:98% * 07/11/2024 Temp:96.0F, HR:82/min, BP:Si tting Right Arm: 118/54mm Hg, Wt:179.8lbs, BMI:24.55Index, Ht:71.75in, Oxygen sat %:98% Assessment: Plan: * Treatment: * Images: Billing Information: * Visit Code: * Procedure Codes: * Electronic signature of Chelly Tuttle MD on 08/25/2025 at 01:11 PM EST Sign off status: Pending * Provider: Francisco Javier Tuttle MD Date: 0 03/18/2025 Generated for Yasmany garcia/Manuela/Radha on: 1 10/26/2024 01:11 PM EST
--- OUTSIDE RECORDS SUMMARY | 2025-08-03 08:30 | XMS_ITS ---
Author Organization Ruma Tuttle MD Address [address] [place] [phone] Care Team Providers Care Real Estate Paralegal Name Role Phone Ruma Tuttle Primary Care Provider REASON FOR VISIT AWV Encounters Encounter Location Date Provider Diagnosis Ruma Tuttle MD [address] [place] [address] [place] [id number] 08/03/2025 Ruma Tuttle Plan Of Treatment Next Appt Details Provider Name:Ruma Tuttle , 02/16/2026 02:00:00 PM, [address] [place] [address], [phone], Provider Name:Ruma Tuttle , 08/31/2026 02:00:00 PM, [address] [place] [address], [id number], Progress Notes * Baltazar GONZALEZDOB: (85 yo M)Acc No.[id number]:08/03/2025 Progress Note Patient: Baltazar STEEN Provider: Francisco Javier Tuttle MD Resource:Kenzie Palomo :1940 A ge:85 Y S ex:Male Date:08/03/2025 Address:[address] [place] [address] Subjective: * Chief Complaints: * 1 . [...] Date: 10/03/2024 Generated for Yasmany garcia/Manuela/Radha on: 10/26/2024 01:11 PM EST
--- NOTE | 2025-08-25 11:16 | MHC.OFFVIS ---
Intake Visit Reasons: OV: LT IF Distal Phalanx Fx, DOI: 07/30/25 Intake Note: Baltazar is an 85 year old ambidextrous male who presents today for status post Left Index Open Distal Tuft Fracture, DOI: 07/30/25. At his last visit he was advise to wear his splint with activities. States he has been resting his hand/finger and feels as if its much better, he is able to make a close fist with no pain, still a little limited but states its good over all. Patient mentioned he has increase his Vit D intake. Allergies No Known Allergies Allergy (Verified 08/25/25 11:20) HPI HPI OV: LT IF Distal Phalanx Fx, DOI: 07/30/25: Details: Baltazar is an 85 year old right hand dominant man who presents S/P Left Index Open Distal Tuft Fracture, DOI: 07/30/25, after his finger was caught in a car door. This was managed non-operatively. He says he is doing well and he has improved his ROM. He has been wearing his finger splint as instructed. He wants to know when he can resume playing the Piano. 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 [facility] Surgical History History of ankle surgery Social History Alcohol intake: current Alcohol intake frequency: a few times a month Patient Tobacco Use Status: Former Tobacco user Current occupation: ambidextrous Review of Systems Const All systems reviewed & are unremarkable except as noted in HPI and below Physical Exam Const General: cooperative, healthy appearing and no acute distress Orientation/consciousness: patient oriented x3 HEENT Head: Yes normocephalic and Yes atraumatic Eyes EOM: EOMs intact bilaterally Resp Effort & Inspection: normal respiratory effort and able to speak in complete sentences Cardio Jugular venous distension: no JVD Skin General skin exam: turgor normal Rashes: no rashes Neuro General: patient oriented x3 Extrem Other: Evaluation of Left Upper Extremity: The patient is alert, oriented, and in no acute distress Neuro: Median, Ulnar, Radial nerves motor and sensory intact and sensation is normal to the tips of all digits Vascular: Cap refill brisk ROM: He can make a fist and extend all his digits General: No Ecchymosis. No Erythema or evidence of infection. No tenderness over the fracture site Healed injury to the pad of the finger Radiographs: 3 views of the left hand were taken and viewed by me today in clinic. They show an index finger distal phalanx tuft fracture with satisfactory fracture alignment and some evidence of interval bony healing. 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 Left index finger distal phalanx tuft fracture, open S/P crush injury in a car door, DOI: 07/30/25 This has been managed conservatively I educated him about this condition I discussed activity modification, he is to work on ROM exercises at home He is able to use his hand for lightweight activities, and slowly increase as tolerated over the next few weeks He is still to avoid any heavy impact activities or falls for the next 4 weeks He will discontinue his splint as instructed He can follow up prn Scribed for Michelle Parr MD by Garry Holland, director medical affairs, on 08/25/25 at 11:25 AM, EST. Orders: Orders XR hand LT min 3V Today M79.642 - Pain in left hand Coding Level of Care Code Global (59021) Diagnoses Open fracture of distal phalanx of left index finger S62.631B
--- OUTSIDE RECORDS SUMMARY | 2025-08-25 13:12 | XMS_ITS | Patient Health Record ---
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 Name Role Phone [facility] Primary Care Provider [phone] Mari Tavares Unavailable [phone] Allergies No Known Allergies Results Component Value Reference Range Notes US Renal Reviewed date:02/18/2025 06:36:49 PM Interpretation: [...] Electronically Signed by: FRANKIE JOHNSON II, MD ANCA Profile (RDL)-[id number] Reviewed date:02/06/2025 01:47:46 PM Interpretation: Performing Lab:[facility] [address], Phone - [phone], Director [facility] Notes/Report: ANCA by IFA (RDL) Negative Negative Anti-MPO Ab (RDL) <20 <20 Units Anti-WV-3 Ab (RDL) 24 <20 Units CLAUDY by IFA Rfx Titer/Pattern -[id number] Reviewed date:02/06/2025 01:47:46 PM Interpretation: Performing Lab:[facility] [address], Phone - [phone], [facility] Notes/Report: CLAUDY by IFA Rfx Titer/Pattern Negative Negative <1:80 Borderline 1:80 Positive >1:80 ICAP nomenclature: AC-0 For more information about Hep-2 cell patterns use ANApatterns.org, the official website for the International Consensus on Antinuclear Antibody (CLAUDY) Patterns (ICAP). Immunofixation, Urine-[id number] Reviewed date:02/06/2025 01:47:46 PM Interpretation: Performing Lab:[facility] [address], Phone - [phone], [facility] Notes/Report: YEISON Interpretation:U The immunofixation pattern appears unremarkable. Evidence of monoclonal protein is not apparent. Complement C3, Serum-[id number] Reviewed date:02/06/2025 01:47:45 PM Interpretation: Performing Lab:[facility] [address], Phone - [phone], Director [facility] Notes/Report: Complement C3, Serum 110 82-167 mg/dL Complement C4, Serum-197534 Reviewed date:02/06/2025 01:47:45 PM Interpretation: Performing Lab:[facility] [address], Phone - [phone], Director [facility] Notes/Report: Complement C4, Serum 22 12-38 mg/dL Immunofixation, Serum-[id number] Reviewed date:02/06/2025 01:47:45 PM Interpretation: Performing Lab:[facility] [address], Phone - [phone], Director - [facility] Notes/Report: Immunofixation Result, Serum The immunofixation pattern appears unremarkable. Evidence of monoclonal protein is not apparent. Immunoglobulin G, Qn, Serum 9784 409-0437 mg/d L Immunoglobulin A, Qn, Serum 276 61-437 mg/dL Immunoglobulin M, Qn, Serum 52 15-143 mg/dL HCV Antibody-[id number] (Not yet reviewed by provider) Interpretation: Performing Lab:[facility] [place], [address] [place] [address], Phone - [phone], Director - [facility] Notes/Report: Hep C Virus Ab Non Reactive Non Reactive HCV antibody alone does not differentiate between previously resolved infection and active infection. Equivocal and Reactive HCV antibody results should be followed up with an HCV RNA test to support the diagnosis of active HCV infection. LP+Non-HDL Cholesterol-72047 5 (Not yet reviewed by provider) Interpretation: Performing Lab:[facility] [place], [address] [place] [address], Phone - [phone], Director - [facility] Notes/Report: Cholesterol, Total 183 100-199 mg/dL Triglycerides 147 0-149 mg/dL HDL Cholesterol 69 >39 mg/dL VLDL Cholesterol Jaret 25 5-40 mg/dL LDL Chol Calc (NIH) 89 0-99 mg/dL Non-HDL Cholesterol 114 0-129 mg/dL Comp. Metabolic Panel (14)-3 48642 (Not yet reviewed by provider) Interpretation: Performing Lab:[facility] [place], [address] [place] [address], Phone - [phone], Director [facility] Notes/Report: Glucose 124 70-99 mg/dL BUN 33 8-27 mg/dL Creatinine 1.47 0.76-1.27 mg/dL eGFR 46 >59 mL/min/1.73 BUN/Creatinine Ratio 22 10-24 Sodium 138 134-144 mmol/L Potassium 4.8 3.5-5.2 mmol/L Chloride 104 96-106 mmol/L Carbon Dioxide, Total 24 20-29 mmol/L Calcium 9.2 8.6-10.2 mg/dL Protein, Total 6.9 6.0-8.5 g/dL Albumin 4.2 3.7-4.7 g/dL Globulin, Total 2.7 1.5-4.5 g/dL Bilirubin, Total 0.3 0.0-1.2 mg/dL Alkaline Phosphatase 95 48-129 IU/L AST (SGOT) 27 0-40 IU/L ALT (SGPT) 21 0-44 IU/L Vitamin D, 69-Venmdjx-128207 (Not yet reviewed by provider) Interpretation: Performing Lab:[facility] [place], [address] [place] [address], [place], Phone - [phone], Director - [facility] Notes/Report: Vitamin D, 25-Hydroxy 13.9 30.0-100.0 ng/mL Vitamin D deficiency has been defined by the [place] of [employer] and an Endocrine Society practice guideline as a level of serum 25-OH vitamin D less than 20 ng/mL (1,2). The Endocrine Society went on to further define vitamin D insufficiency as a level between 21 and 29 ng/mL (2). 1. IOM ([place] of [employer]). 2010. Dietary reference intakes for calcium and D. [place]: The National Academies Press. 2. Alissa MF, Michael GREEN, Vincenzo RODRIGUES, et al. Evaluation, treatment, and prevention of vitamin D deficiency: an Endocrine Society clinical practice guideline. JCEM. 2010; 96(7):1911-30. Prostate-Specific Ag-[id number] (Not yet reviewed by provider) Interpretation: Performing Lab:[facility] [place], [address] [place] [address], [place], Phone - [phone], [facility] Notes/Report: Prostate Specific Ag 3.3 0.0-4.0 ng/mL Nichelle ECLIA methodology. . According to the [place] [employer], Serum PSA should decrease and remain at undetectable levels after radical prostatectomy. The AUA defines biochemical recurrence as an initial PSA value 0.2 ng/mL or greater followed by a subsequent confirmatory PSA value 0.2 ng/mL or greater. Values obtained with different assay methods or kits cannot be used interchangeably. Results cannot be interpreted as absolute evidence of the presence or absence of malignant disease. CBC With Differential/Platel et-[id number] (Not yet reviewed by provider) Interpretation: Performing Lab:[facility] [place], [address] [place] [address], [place], Phone - [phone], Director - [facility] Notes/Report: WBC 5.7 3.4-10.8 x10E3/uL RBC 4.51 4.14-5.80 x10E6/uL Hemoglobin 12.8 13.0-17.7 g/dL Hematocrit 40.1 37.5-51.0 % MCV 89 79-97 fL MCH 28.4 26.6-33.0 pg MCHC 31.9 31.5-35.7 g/dL RDW 13.4 11.6-15.4 % Platelets 235 150-450 x10E3/uL Neutrophils 54 Not Estab. % Lymphs 29 Not Estab. % Monocytes 12 Not Estab. % Eos 4 Not Estab. % Basos 1 Not Estab. % Neutrophils (Absolute) 3.1 1.4-7.0 x10E3/uL Lymphs (Absolute) 1.7 0.7-3.1 x10E3/uL Monocytes(Absolute) 0.7 0.1-0.9 x10E3/uL Eos (Absolute) 0.2 0.0-0.4 x10E3/uL Baso (Absolute) 0.1 0.0-0.2 x10E3/uL Immature Granulocytes 0 Not Estab. % Immature Grans (Abs) 0.0 0.0-0.1 x10E3/uL Ferritin-776584 (Not yet rev iewed by provider) Interpretation: Performing Lab:[address], Phone - [phone], Director - [facility] Notes/Report: Ferritin 54 30-400 ng/mL TSH-[id number] (Not yet reviewed by provider) Interpretation: Performing Lab:[address], Phone - [phone], Director - [facility] Notes/Report: TSH 1.020 0.450-4.500 uIU/mL Urinalysis, Complete-[id number] (Not yet reviewed by provider) Interpretation: Performing Lab:[address], Phone - [phone], Director - [facility] Notes/Report: Specific [place] 1.020 1.005-1.030 pH 5.5 5.0-7.5 Urine-Color Yellow Yellow Appearance Clear Clear WBC Esterase Negative Negative Protein Negative Negative/Trace Glucose 2+ Negative Ketones Negative Negative Occult Blood Negative [...] seen /lpf Bacteria None seen None seen/Few Thyroxine (T4) Free, Direct- [id number] (Not yet reviewed by provider) Interpretation: Performing Lab:[facility], Phone - [phone], Director - [facility] Notes/Report: T4,Free(Direct) 1.09 0.82-1.77 ng/dL Vitamin [id number] (Not yet reviewed by provider) Interpretation: Performing Lab:[facility] [address], Phone - [phone], Director - [facility] Notes/Report: Vitamin B12 375 526-8341 pg/mL Hemoglobin T8w-382102 (Not y et reviewed by provider) Interpretation: Performing Lab:[facility] [address], Phone - [phone], Director - [facility] Notes/Report: Hemoglobin A1c 5.6 4.8-5.6 % . Prediabetes: 5.7 - 6.4 Diabetes: >6.4 Glycemic control for adults with diabetes: <7.0 Iron and TIBC-975748 (Not ye t reviewed by provider) Interpretation: Performing Lab:[facility] [address], Phone - [phone], [facility] Notes/Report: Iron Bind.Cap.(TIBC) 303 250-450 ug/dL UIBC 228 111-343 ug/dL Iron 75 38-169 ug/dL Iron Saturation 25 15-55 % LP+Non-HDL Cholesterol-59933 5 Reviewed date:01/14/2025 06:50:40 PM Interpretation: Performing Lab:[facility] [address], Phone - [phone], Director - [facility] Notes/Report: Cholesterol, Total 184 100-199 mg/dL Triglycerides 113 0-149 mg/dL HDL Cholesterol 61 >39 mg/dL VLDL Cholesterol Jaret 20 5-40 mg/dL LDL Chol Calc ([facility]) 103 0-99 mg/dL Non-HDL Cholesterol 123 0-129 mg/dL Comp. Metabolic Panel (14)-3 Reviewed date:01/14/2025 06:50:40 PM Interpretation: Performing Lab:[facility] [place], [address] [place] [address], Phone - [phone], Director - [facility] Notes/Report: Glucose 85 70-99 mg/dL BUN 45 [...] 0-40 IU/L ALT (SGPT) 11 0-44 IU/L Albumin/Creatinine Ratio,Uri ne-963547 Reviewed date:01/14/2025 06:50:40 PM Interpretation: Performing Lab:[facility] [place], [address] [place] [address], Phone - [phone], Director - [facility] Notes/Report: Creatinine, Urine 79.1 Not Estab. mg/dL Albumin, Urine 3.0 Not Estab. ug/mL Alb/Creat Ratio 4 0-29 mg/g creat Normal: 0 - 29 Moderately increased: 30 - 300 Severely increased: >300 Cystatin C with eGFR-812966 Reviewed date:01/14/2025 06:50:40 PM Interpretation: Performing Lab:[facility] [place], [address] [place] [address], Phone - [phone], Director - [facility] Notes/Report: Cystatin C 2.11 0.87-1.12 mg/L eGFR 26 >59 mL/min/1.73 Vitamin D, 12-Qoivoqt-167162 Reviewed date:01/14/2025 06:50:40 PM Interpretation: Performing Lab:[facility] [place], [address] [place] [address], [place], Phone - [phone], Director - [facility] Notes/Report: Vitamin D, 25-Hydroxy 19.1 30.0-100.0 ng/mL Vitamin D deficiency has been defined by the [place] [employer] and an Endocrine Society practice guideline as a level of serum 25-OH vitamin D less than 20 ng/mL (1,2). The Endocrine Society went on to further define vitamin D insufficiency as a level between 21 and 29 ng/mL (2). 1. IOM ([place] [employer]). 2010. Dietary reference intakes for calcium and D. [place]: The National Academies Press. 2. Alissa MF, Michael GREEN, Vincenzo RODRIGUES, et al. Evaluation, treatment, and prevention of vitamin D deficiency: an Endocrine Society clinical practice guideline. JCEM. 2010; 96(7):1911-30. Urinalysis, Complete-[id number] Reviewed date:01/14/2025 06:50:40 PM Interpretation: Performing Lab:[facility] [place], [address] [place] [address], Phone - [phone], Director - [facility] Notes/Report: Specific [place] 1.018 1.005-1.030 pH 5.5 5.0-7.5 Urine-Color Yellow [...] /lpf Bacteria None seen None seen/Few Hemoglobin [id number]-[id number] Reviewed date:01/14/2025 06:50:40 PM Interpretation: Performing Lab:[facility] [place], [address] [place] [address], [place], Phone - [phone], Director - [facility] Notes/Report: Hemoglobin A1c 5.7 4.8-5.6 % . Prediabetes: 5.7 - 6.4 Diabetes: >6.4 Glycemic control for adults with diabetes: <7.0 Comp. Metabolic Panel (14)-3 64257 Reviewed date:02/18/2025 06:36:49 PM Interpretation: Performing Lab:[facility] [place], [address] [place] [address], Phone - [phone], Director - [facility] Notes/Report: Glucose 86 70-99 [...] 0-40 IU/L ALT (SGPT) 16 0-44 IU/L Albumin/Creatinine Ratio,Uri ne-723118 Reviewed date:02/18/2025 06:36:49 PM Interpretation: Performing Lab:[facility] [place], [address] [place] [address], Phone - [phone], Director - [facility] Notes/Report: Creatinine, Urine 73.4 Not Estab. mg/dL Albumin, Urine 10.3 Not Estab. ug/mL Alb/Creat Ratio 14 0-29 mg/g creat Normal: 0 - 29 Moderately increased: 30 - 300 Severely increased: >300 Urinalysis, Complete-[id number] Reviewed date:02/18/2025 06:36:48 PM Interpretation: Performing Lab:[facility] [place], [address] [place] [address], Phone - [phone], Director - [facility] Notes/Report: Specific [place] 1.016 1.005-1.030 pH 6.0 5.0-7.5 Urine-Color Yellow [...] seen /lpf Bacteria None seen None seen/Few Reason For Referral No Information Medications Medication SIG (Take, Route, Frequency, Duration) Notes Start Date End Date Status Farxiga 10 MG 1 tablet Orally Once a day; Duration: 30 day(s) 03/26/2025 09/22/2025 Active Valium 2 MG 1 tablet Orally Once a day; Duration: 14 days As needed 07/07/2025 Active Latanoprost 0.005 % PLACE 1 DROP IN EACH EYE AT BEDTIME Ophthalmic; Duration: 20 Active Dorzolamide HCl 2 % INSTILL 1 DROP IN TH E RIGHT EYE TWO TIMES A DAY Ophthalmic; Duration: 80 Active Brimonidine-Dorzolamide 0.15-2 % as directed Ophthalmic Activ e Viagra 100 MG 1 tablet Orally Once a day; Duration: 10 days As needed Active Ramipril 10 MG 1 capsule Orally Onc e a day; Duration: 90 days Active amLODIPine Besylate 5 MG 1 tablet Orally Once a day; Duration: 30 days 02/26/2025 Active Immunizations Vaccine Route Administration Date Status Comme nts *Wttbtmhyb-Dmgpvqt-Gtdd Dose-65+ IM Intramuscular 07/11/2024 Administered *Bbnawjyew-Gzfkiht-Xlva Dose-65+ Unknown 08/19/2025 Refused *Influenza-Medicare-AS Unknown 08/18/2019 Refused *Influenza-Medicare-AS IM Intramuscular 06/07/2021 Adminis tered *Influenza-Medicare-AS Unknown 06/05/2022 Refused *Influenza-Medicare-AS IM Intramuscular 06/26/2022 Adminis tered *Influenza-Quadrivalent IM Intramuscular 07/09/2023 Admini stered *PREVNAR 20 IM Intramuscular 07/11/2024 Administered *Tdap Unknown 08/30/2016 Administered COVID 19 (Pfizer 12+) Unknown 02/28/2022 Administered COVID COMIRNATY Pfizer Unknown 09/12/2023 Administered COVID-19 Pfizer BiValent Booster Unknown 06/02/2022 Administered SRPSA-56-Epnofm Vaccine Unknown 10/11/2020 Administered OZNDR-91-Xdvddh Vaccine Unknown 11/01/2020 Administered QLQGJ-73-Lztmmc Vaccine Unknown 06/17/2021 Administered Influenza Unknown 07/07/2020 [...] year? Yes How often did you have a dri nk containing alcohol in the past year? 2 to 4 times a month (2 points) How many drinks did you have on a typical day when you were drinking in the past year? 1 or 2 drinks (0 point) How often did you have six o r more drinks on one occasion in the past year? Never (0 point) Points 2 Interpretation Negative Tobacco Control (Standard) Question Answer Notes Tobacco use: Former smoker How long has it been since you last smoked? 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 Problem Anxiety disorder (442166350) Anxiety disorder, unspecified (F41.9) Active confirmed Problem Acute stress reaction (98596779) Acute stress reaction (F43.0) Active confirmed Problem Adjustment disorder with depressed mood (96364533) Adjustment disorder with depressed mood (F43.21) Active confirmed Problem Sensorineural hearing loss of bilateral ears (disorder) (829664008) Sensorineural hearing loss, bilateral (H90.3) Active confirmed Problem Presbycusis (11428925) Presbycusis, bilateral (H91.13) Active confirmed Problem Chronic kidney disease due to hypertension (477639217698560) Hypertensive chronic kidney disease with stage 1 through stage 4 chronic kidney disease, or unspecified chronic kidney disease (I12.9) Active confirmed Problem Atrial premature depolarization (470971183) Atrial premature depolarization (I49.1) Active confirmed Problem Ventricular premature depolarization (211463043) Ventricular premature depolarization (I49.3) Active confirmed Problem Erectile dysfunction (disorder) (049507429) Male erectile dysfunction, unspecified (N52.9) Active confirmed Problem Family history of malignant neoplasm of prostate (975444925) Family history of malignant neoplasm of prostate (Z80.42) Active confirmed Problem Lower urinary tract symptoms due to benign prostatic hypertrophy (91243160193759) Benign prostatic hyperplasia with lower urinary tract symptoms (N40.1) Active confirmed Problem Prediabetes (426139128) Prediabetes (R73.03) Active confirmed Problem Chronic kidney disease stage 3A (disorder) (903947799) Chronic kidney disease, stage 3a (N18.31) Active confirmed Problem Chronic kidney disease stage 3B (disorder) (952368204) Chronic kidney disease, stage 3b (N18.32) Active confirmed Problem Chronic kidney disease stage 2 (789084776) Chronic kidney disease, stage 2 (mild) (N18.2) Inactive confirmed Problem Cellulitis of finger of right hand (3017255383743397 9) Cellulitis of right finger (L03.011) Problem resolved confirmed Vital Signs Heart Rate 74 /min 08/19/2025 Temperature 96.4 degrees Fahrenheit 08/19/2025 Oximetry 91 % 08/19/2025 Blood pressure diastolic 60 mm Hg 08/19/2025 Height 71.75 in 08/19/2025 Blood pressure systolic 116 mm Hg 08/19/2025 Weight 171.5 lbs 08/19/2025 BMI 23.42 kg/m2 08/19/2025 Encounters Encounter Location Date Provider Diagnosis Ruma MARVIN [address] [place] [address] [id number] 01/12/2025 R[facility] Hypertensive chronic kidney disease with stage 1 through stage 4 chronic kidney disease, or unspecified chronic kidney disease I12.9 ; Chronic kidney disease, stage 3a N18.31 ; Prediabetes R73.03 ; Mixed hyperlipidemia E78.2 and Vitamin D deficiency, unspecified E55.9 Ruma MARVIN [address] [place] [address] [id number] 02/26/2025 Ruma Tuttle Hypertensive chronic kidney disease with stage 1 through stage 4 chronic kidney disease, or unspecified chronic kidney disease I12.9 and Chronic kidney disease, stage 3a N18.31 Ruma Tuttle MD [address] [id number] 03/26/2025 Ruma Tuttle Hypertensive chronic kidney disease with stage 1 through stage 4 chronic kidney disease, or unspecified chronic kidney disease I12.9 and Chronic kidney disease, stage 3a N18.31 Ruma Tuttle MD [address] [id number] 08/19/2025 Ruma Tuttle Hypertensive chronic kidney disease with stage 1 through stage 4 chronic kidney disease, or unspecified chronic kidney disease I12.9 ; Encounter for general adult medical examination without abnormal findings Z00.00 ; Chronic kidney disease, stage 2 (mild) N18.2 ; Prediabetes R73.03 ; Mixed hyperlipidemia E78.2 ; Family history of malignant neoplasm of prostate Z80.42 ; Vitamin D deficiency, unspecified E55.9 ; Encounter for screening for malignant neoplasm of colon Z12.11 ; Encounter for screening for malignant neoplasm of prostate Z12.5 ; Encounter for screening for cardiovascular disorders Z13.6 ; Encounter for immunization Z23 ; Encounter for antibody response examination Z01.84 ; Encounter for screening for other viral diseases Z11.59 ; Sensorineural hearing loss, bilateral H90.3 ; Immunization not carried out because of patient refusal Z28.21 and Other fatigue R53.83 Ruma Tuttle MD [address] [id number] 10/08/2024 Ruma Tuttle Hypertensive chronic kidney disease with stage 1 through stage 4 chronic kidney disease, or unspecified chronic kidney disease I12.9 Ruma Tuttle MD [address] [id number] 10/30/2024 Mari Tuttle MD [address] [id number] 01/14/2025 Ruma Tuttle Chronic kidney disea se, stage 3b N18.32 and Hypertensive chronic kidney disease with stage 1 through stage 4 chronic kidney disease, or unspecified chronic kidney disease I12.9 Ruma Tuttle MD [address] [id number] 01/21/2025 Ruma Tuttle MD [address] [id number] 02/09/2025 Ruma Tuttle MD [address] [id number] 02/12/2025 Ruma Tuttle Chronic kidney disea se, stage 3a N18.31 Ruma Tuttle MD [address] [id number] 02/26/2025 Ruma Tuttle MD [address] [id number] 04/10/2025 Ruma Tuttle MD [address] [id number] 07/07/2025 Ruma Tuttle MD [address] [id number] 08/03/2025 Ruma Tuttle Assessments Encounter Date Diagnosis (ICD Code) Assessment Notes Treatment Notes Treatment Clinical Notes Section Notes 02/12/2025 Chronic kidney disease, stage 3a (ICD-10 [...] hypertension as well as for GFR preservation 08/19/2025 Hypertensive chronic kidney disease with stage 1 through stage 4 chronic kidney disease, or unspecified chronic kidney disease (ICD-10 - I12.9) Stable at present. His blood pressure is lower at home on his validated blood pressure machine. Can continue current medical therapy that would be consistent with [employer] mind trial results. He reports he did not take his medication at home this morning because he did not think he needed it but counseled on continue to take medication as prescribed 08/19/2025 Encounter for general adult medical examination without abnormal findings (ICD-10 - Z00.00) General healthcare up-to-date. Check routine labs. He still has healthcare proxy and MOST form packages from prior visits at home. Counseled on the importance of completing and educated on the content in regards to life support dialysis and feeding tubes. 10/08/2024 Hypertensive chronic kidney disease with stage [...] we will continue with current medical therapy. 01/12/2025 Chronic kidney disease, stage 3a (ICD-10 [...] reviewed. He continues to exercise. Recheck status 08/19/2025 Chronic kidney disease, stage 2 (mild) (ICD-10 - N18.2) His GFR had been in the 70s and now in the upper 40s. Continue control of comorbidity of hypertension recheck status 08/19/2025 Prediabetes (ICD-10 - R73.03) Stable on prior labs reviewed. Recheck status and continue exercise which he is doing. 01/12/2025 Mixed hyperlipidemia (ICD-10 - E78.2) Stable at present. His prior labs revealed that his LDL was greater than 100. At this point there may be no benefit in primary prevention strategy at this age. 01/12/2025 Vitamin D deficiency, unspecified (ICD-10 - E55.9) Fair control and prior labs reviewed. Recommend vitamin D supplementation for goal level of 30+ 08/19/2025 Mixed hyperlipidemia (ICD-10 - E78.2) Stable on prior labs reviewed. There may be no benefit for primary prophylaxis at this age. His LDL is less than 100. 08/19/2025 Family history of malignant neoplasm of prostate (ICD-10 - Z80.42) Can check PSA given increased risk for prostate cancer 08/19/2025 Vitamin D deficiency, unspecified (ICD-10 - E55.9) His vitamine d is at 19 recommend vitamin D 3000iu supplementation for goal level of 50+ 08/19/2025 Encounter for screening for malignant neoplasm of colon (ICD-10 - Z12.11) Up-to-date on colon cancer screening 08/19/2025 Encounter for screening for malignant neoplasm of prostate (ICD-10 - Z12.5) Can check PSA has prostate cancer screening realizing the limitation of this test as a screening test 08/19/2025 Encounter for screening for cardiovascular disorders (ICD-10 - Z13.6) Blood pressure is stable. Can check for comorbidity of hyperlipidemia and hyperglycemia to further assess risk. 08/19/2025 Encounter for immunization (ICD-10 - Z23) Vaccines updated 08/19/2025 Encounter for antibody response examination (ICD-10 - Z01.84) He will be considered immune to rubeola by virtue of his age 1208/19/2025 Encounter for screening for other viral diseases (ICD-10 - Z11.59) Can screen for hepatitis C as per general recommendation 08/19/2025 Sensorineural hearing loss, bilateral (ICD-10 - H90.3) He knows that he needs hearing aids but does not wish to proceed in procuring them. 08/19/2025 Immunization not carried out because of patient refusal (ICD-10 - Z28.21) he defers influenza vaccine 08/19/2025 Other fatigue (ICD-10 - R53.83) he reports increased fatigue this may be due to caring for his at home who recently broke her hip. Will check labs to further evaluate. 01/12/2025 Other This note was created with [...] 05/01/2018 CT Abdomen Pelvis WO Cont 12/27/2022 Iron and TIBC-696057 08/19/2025 Hemoglobin K3m-792850 08/19/2025 Vitamin G20-852403 08/19/2025 Thyroxine (T4) Free, Direct-109175 08/19 Urinalysis, Complete-583330 08/19/2025 TSH-873347 08/19/2025 Ferritin-838713 08/19/2025 CBC With Differential/Platelet-460520 Prostate-Specific Ag-307003 08/19/2025 Vitamin D, 37-Hpgosrj-270999 08/19/2025 Comp. Metabolic Panel (14)-257323 2024 LP+Non-HDL Cholesterol-551774 08/19/2025 HCV Antibody-416096 08/19/2025 Future Test Test Name Order Date PSA 05/11/2019 Next Appt Details Provider Name:Ruma Tuttle , 02/16/2026 02:00:00 PM, [address] [place] [address], [phone], Provider Name:Ruma Tuttle , 08/31/2026 02:00:00 PM, [address] [place] [address], [phone], Insurance Providers Payer Name Payer Address Payer Phone Subscriber Number Group Number Insured Name Patient Relationship to Insured Coverage Start Date Coverage End Date MEDICARE [address] [place] [phone] [id number] Baltazar Hart Self - patient is the insured [facility] MEDEX [address] [place] [address] [id number] Baltazar Hart Self - patient is the insured Medical (General) History Medical History History ICD Code Essential (primary) hypertension I10 Cellulitis of right finger (resolved ) undefined Surgical History Surgery Date(Month/Year) Hernia repair cataract-lens implants bilateral laser eye surgery Hospitalization History Reason Date(Month/Year)
--- OUTSIDE RECORDS SUMMARY | 2025-08-25 13:12 | XMS_ITS | Clinical Summary ---
Author Organization [facility] Address [address] [address] Phone Care Team Providers Care Pet Handler Name Role Phone Cassandra Tuttle MD Primary Care Provider [phone] Allergies No known active allergies Medications cephalexin [...] [place] [id number] [employer] MEDEX SUPPLEMENT MEDICARE PART A & B [employer] MEDEX SUPPLEMENT MEDICARE PART A & B [employer] MEDEX SUPPLEMENT MEDICARE PART A & B [employer] MEDEX SUPPLEMENT MEDICARE PART A & B [employer] MEDEX SUPPLEMENT MEDICARE PART A & B [employer] MEDEX SUPPLEMENT MEDICARE PART A & B [employer] MEDEX SUPPLEMENT MEDICARE PART A & B [employer] MEDEX SUPPLEMENT MEDICARE PART A & B [employer] MEDEX SUPPLEMENT Care Teams Pet Handler Relationship Specialty Start Date End Date Cassandra Tuttle MD [address] [address] [email or web address] PCP - General Internal Medicine 01/31/21 Additional Source Comments The information contained in this document represents components of the legal health record. It is not the complete legal health record.[facility]
== END 2025-08-25 11:34 | disposition home or self-care (01) ==
LOC: HO.HOS 10:29
PROVIDERS: Visit Provider Orthopaedic Surgery
DX: S62.631B Displaced fracture of distal phalanx of left index finger, initial encounter for open fracture (principal)
CPT/HCPCS: 99213

== ENCOUNTER → 2025-08-25 10:32 | Outpatient (BNV) | payer MEDICARE, SELFPAY | PROVIDERS: Visit Provider Radiology Diagnostic Radiology | DX: M79.642 Pain in left hand (principal) | CPT/HCPCS: 73130 ==

== ENCOUNTER 2025-08-25 11:36 | Outpatient (REF) | payer MEDICARE, SELFPAY ==
--- OUTSIDE RECORDS SUMMARY | 2025-02-23 10:15 | XMS_ITS ---
Author Organization Ruma Tuttle MD Address [address] [place] [phone] Care Team Providers Care Restorative Rehab Aide Name Role Phone Ruma Tuttle Primary Care Provider REASON FOR VISIT Elevated renal labs Encounters Encounter Location Date Provider Diagnosis Ruma Tuttle MD [address] [place] [address] [place] [phone] 02/23/2025 Ruma Tuttle Plan Of Treatment Next Appt Details Provider Name:Ruma Tuttle , 02/16/2026 02:00:00 PM, [address] [place] [address], [phone], Provider Name:Ruma Tuttle , 08/31/2026 02:00:00 PM, [address] [place] [address], [phone], Progress Notes * Baltazar GONZALEZDOB: (85 yo M)Acc No.[id number]:02/23/2025 Progress Notes Patient: Nisreen PRADEEPBaltazar ANTONY Provider: Francisco Javier Tuttle MD :1940 A ge:85 Y S ex:Male Date:02/23/2025 Address:[address] [place] [address] Subjective: * Chief Complaints: * 1 . [...] Electronic signature of Chelly Tuttle MD on 08/27/2025 at 03:18 PM EST Sign off status: Pending * Provider: Francisco Javier Tuttle MD Date: 0 02/23/2025 Generated for Yasmany garcia/Manuela/Coreyitting on: 1 10/28/2024 03:18 PM EST
--- OUTSIDE RECORDS SUMMARY | 2025-03-18 09:15 | XMS_ITS ---
Author Organization [facility] Address [address] [place] [phone] Care Team Providers Care Glass Deposition Tender Name Role Phone Ruma Tuttle Primary Care Provider REASON FOR VISIT Elevated labs Encounters Encounter Location Date Provider Diagnosis Ruma Tuttle MD [address] [place] [address] [place] [phone] 03/18/2025 Ruma Tuttle Plan Of Treatment Next Appt Details Provider Name:Ruma Tuttle , 02/16/2026 02:00:00 PM, [address] [place] [address], [phone], Provider Name:Ruma Tuttle , 08/31/2026 02:00:00 PM, [address] [place] [address], [phone], Progress Notes * Baltazar GONZALEZDOB: (85 yo M)Acc No.[id number]:03/18/2025 Progress Notes Patient: Baltazar STEEN Provider: Francisco Javier Tuttle MD :1940 A ge:85 Y S ex:Male Date:03/18/2025 Address:[address] [place] [address] Subjective: * Chief Complaints: * 1 . [...] of Chelly Tuttle MD on 08/27/2025 at 03:17 PM EST Sign off status: Pending * Provider: Francisco Javier Tuttle MD Date: 0 03/18/2025 Generated for Yasmany garcia/Manuela/Radha on: 1 10/28/2024 03:17 PM EST
--- OUTSIDE RECORDS SUMMARY | 2025-08-03 08:30 | XMS_ITS ---
Author Organization Ruma Tuttle MD Address [address] [place] [phone] Care Team Providers Care Attic Fans Mechanic Name Role Phone Ruma Tuttle Primary Care Provider [phone] REASON FOR VISIT AWV Encounters Encounter Location Date Provider Diagnosis Ruma Tuttle MD [address] [place] [address] [place] [id number] 08/03/2025 Ruma Tuttle Plan Of Treatment Next Appt Details Provider Name:Ruma Tuttle , 02/16/2026 02:00:00 PM, [address] [place] [address], [phone], Provider Name:Ruma Tuttle , 08/31/2026 02:00:00 PM, [address] [place] [address], [phone], Progress Notes * Baltazar GONZALEZDOB: (85 yo M)Acc No.[id number]:08/03/2025 Progress Note Patient: Baltazar STEEN Provider: Francisco Javier Tuttle MD Resource:Kenzie Palomo :1940 A ge:85 Y S ex:Male Date:08/03/2025 Address:[address] [place] [address] Subjective: * Chief Complaints: * 1 . AWV. * Medical History: * Ocular Surgical History: Objective: * Vitals: Past Vitals:* 03/26/2025 Temp:97.7F, HR:97/min, BP:Si tting Right Arm: 122/50mm Hg, Wt:172lbs, BMI:23.49Index, Ht:71.75in, Oxygen sat %:99% * 02/26/2025 Temp:96.9F, HR:69/min, BP:Si tting Right Arm:160/80mm Hg, Wt:172lbs, BMI:23.49Index, Ht:71.75in, Oxygen sat %:98% * 01/12/2025 Temp:96.8F, HR:80/min, BP: O wn Machine: 100/53 mm Hg,Sitting Right Arm: 114/56mm Hg, Wt: 179 lbs,172lbs, BMI:23.49Index, Ht:71.75in, Oxygen sat %:98% Assessment: Plan: * Treatment: * Images: Billing Information: * Visit Code: * Procedure Codes: * Electronic signature of Chelly Tuttle MD on 08/27/2025 at 03:18 PM EST Sign off status: Pending * Provider: Francisco Javier Tuttle MD Date: 10/03/2024 Generated for Yasmany garcia/Manuela/Radha on: 10/28/2024 03:18 PM EST
--- NOTE | ~2025-08-25 | XR_ITS ---
EXAMINATION: XR HAND, LEFT CLINICAL INFORMATION: M79.642 - Pain in left hand COMPARISON: 08/10/2025, 08/03/2025. TECHNIQUE: PA, lateral, and oblique views of the left hand. FINDINGS: Again noted is a nondisplaced fracture of the distal phalanx of the index finger involving the tuft. Fracture lines slightly less distinct and although the appearance is essentially unchanged from the prior radiograph. The joints appear normal. Old healed fracture of the first metacarpal. 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 There is persistent soft tissue swelling of the distal second digit. XR/XR hand LT min 3V IMPRESSION: No significant change in the fracture of the distal phalanx of the second digit. Electronically signed by: Geovani Willoughby MD 08/25/2025 10:46 AM WALDEMAR SALAZAR
--- OUTSIDE RECORDS SUMMARY | 2025-08-27 15:18 | XMS_ITS | Patient Health Record ---
Author Organization Ruma Tuttle MD Address [address] [place] [id number] Care Team Providers Care Fiscal Economist Name Role Phone Ruma Tuttle Primary Care Provider [phone] Mari Tavares Unavailable [phone] Allergies No Known Allergies Results Component Value Reference Range Notes Complement C4, Serum-001492 Reviewed date:02/06/2025 01:47:45 PM Interpretation: Performing Lab:[facility] [place], [address] [place] [address], Phone - [phone], Director - MDJodry Notes/Report: Complement C4, Serum 22 12-38 mg/dL Immunofixation, Serum-273059 Reviewed date:02/06/2025 01:47:45 PM Interpretation: Performing Lab:[facility] [place], [address] [place] [address], Phone - [phone], Director - MDJodry Notes/Report: Immunofixation Result, Serum The immunofixation pattern appears unremarkable. Evidence of monoclonal protein is not apparent. Immunoglobulin G, Qn, Serum 1782 524-6144 mg/d L Immunoglobulin A, Qn, Serum 276 61-437 mg/dL Immunoglobulin M, Qn, Serum 52 15-143 mg/dL HCV Antibody-178629 Reviewed date:08/25/2025 02:28:50 PM Interpretation: Performing Lab:[facility] [place], [address] [place] [address], Phone - [phone], Director - MDJodry Notes/Report: Hep C Virus Ab Non Reactive Non Reactive HCV antibody alone does not differentiate between previously resolved infection and active infection. Equivocal and Reactive HCV antibody results should be followed up with an HCV RNA test to support the diagnosis of active HCV infection. Ferritin-593509 Reviewed date:08/25/2025 02:28:50 PM Interpretation: Performing Lab:[facility], Phone - [phone], Director - Silva Notes/Report: Ferritin 54 30-400 ng/mL TSH-699879 Reviewed date:08/25/2025 02:28:50 PM Interpretation: Performing Lab:[facility] [address], Phone - [phone], Director - Juany Notes/Report: TSH 1.020 0.450-4.500 uIU/mL Urinalysis, Complete-575083 Reviewed date:08/25/2025 02:28:49 PM Interpretation: Performing Lab:[facility], Phone - [phone], Director - abeba Notes/Report: Specific [place] 1.020 1.005-1.030 pH 5.5 5.0-7.5 Urine-Color Yellow [...] seen None seen/Few Thyroxine (T4) Free, Direct- 541331 Reviewed date:08/25/2025 02:28:49 PM Interpretation: Performing Lab:[facility] [address], Phone - [phone], Director - Juany Notes/Report: T4,Free(Direct) 1.09 0.82-1.77 ng/dL Vitamin U53-269143 Reviewed date:08/25/2025 02:28:49 PM Interpretation: Performing Lab:[facility] [address], Phone - [phone], Director - Juany Notes/Report: Vitamin B12 612 963-9765 pg/mL Hemoglobin P8w-251237 Reviewed date:08/25/2025 02:28:49 PM Interpretation: Performing Lab:[facility], Phone - [phone], Director - VTLorey Notes/Report: Hemoglobin A1c 5.6 4.8-5.6 % . Prediabetes: 5.7 - 6.4 Diabetes: >6.4 Glycemic control for adults with diabetes: <7.0 Iron and TIBC-588227 Reviewed date:08/25/2025 02:28:49 PM Interpretation: Performing Lab:[facility] [place], [address] [place] [address], Phone - [phone], Director - Juany Notes/Report: Iron Bind.Cap.(TIBC) 303 250-450 ug/dL UIBC 228 111-343 ug/dL Iron 75 38-169 ug/dL Iron Saturation 25 15-55 % LP+Non-HDL Cholesterol-89369 5 Reviewed date:01/14/2025 06:50:40 PM Interpretation: Performing Lab:[facility] [place], [address] [place] [address], Phone - [phone], Director - Juan Notes/Report: Cholesterol, Total 184 100-199 mg/dL Triglycerides 113 0-149 mg/dL HDL Cholesterol 61 >39 mg/dL VLDL Cholesterol Jaret 20 5-40 mg/dL LDL Chol Calc (NIH) 103 0-99 mg/dL Non-HDL Cholesterol 123 0-129 mg/dL Comp. Metabolic Panel (14)-3 60061 Reviewed date:01/14/2025 06:50:40 PM Interpretation: Performing Lab:[facility] [place], [address] [place] [address], Phone - [phone], Director - [facility] Notes/Report: Glucose 85 70-99 mg/dL BUN 45 [...] ALT (SGPT) 11 0-44 IU/L Albumin/Creatinine Ratio,Uri ne-094355 Reviewed date:01/14/2025 06:50:40 PM Interpretation: Performing Lab:[facility] [place], [address] [place] [address], Phone - [phone], Director - MDdry Notes/Report: Creatinine, Urine 79.1 Not Estab. mg/dL Albumin, Urine 3.0 Not Estab. ug/mL Alb/Creat Ratio 4 0-29 mg/g creat Normal: 0 - 29 Moderately increased: 30 - 300 Severely increased: >300 Cystatin C with eGFR-654362 Reviewed date:01/14/2025 06:50:40 PM Interpretation: Performing Lab:[facility] [place], [address] [place] [address], Phone - [phone], [facility]Report: Cystatin C 2.11 0.87-1.12 mg/L eGFR 26 >59 mL/min/1.73 Vitamin D, 98-Nfjxiyz-212737 Reviewed date:01/14/2025 06:50:40 PM Interpretation: Performing Lab:[facility] [place], [address] [place] [address], Phone - [phone], [facility] Notes/Report: Vitamin D, 25-Hydroxy 19.1 30.0-100.0 ng/mL Vitamin D deficiency has been defined by the [place] of Medicine and an Endocrine Society practice guideline as a level of serum 25-OH vitamin D less than 20 ng/mL (1,2). The Endocrine Society went on to further define vitamin D insufficiency as a level between 21 and 29 ng/mL (2). 1. IOM ([place] of Medicine). 2010. Dietary reference intakes for calcium and D. [place]: The National Academies Press. 2. Alissa AMAYA, Michael GREEN, Vincenzo RODRIGUES, et al. Evaluation, treatment, and prevention of vitamin D deficiency: an Endocrine Society clinical practice guideline. JCEM. 2010; 96(7):1911-30. Urinalysis, Complete-073178 Reviewed date:01/14/2025 06:50:40 PM Interpretation: Performing Lab:[email or web address] [address], Phone - [phone], Director - [facility] Notes/Report: Specific [place] 1.018 1.005-1.030 pH 5.5 5.0-7.5 Urine-Color Yellow [...] /lpf Bacteria None seen None seen/Few Hemoglobin Z9h-720702 Reviewed date:01/14/2025 06:50:40 PM Interpretation: Performing Lab:[email or web address] [address], Phone - [phone], Director - [facility] Notes/Report: Hemoglobin A1c 5.7 4.8-5.6 % . Prediabetes: 5.7 - 6.4 Diabetes: >6.4 Glycemic control for adults with diabetes: <7.0 Complement C3, Serum-488777 Reviewed date:02/06/2025 01:47:45 PM Interpretation: Performing Lab:[email or web address] [address], Phone - [phone], [facility] Notes/Report: Complement C3, Serum 110 82-167 mg/dL Immunofixation, Urine-709261 Reviewed date:02/06/2025 01:47:46 PM Interpretation: Performing Lab:[email or web address] [address], Phone - [phone], [facility] - [facility] Notes/Report: YEISON Interpretation:U The immunofixation pattern appears unremarkable. Evidence of monoclonal protein is not apparent. CLAUDY by IFA Rfx Titer/Pattern -917925 Reviewed date:02/06/2025 01:47:46 PM Interpretation: Performing Lab:[email or web address] [place], [address] [place] [address], Phone - [phone], Director - Silva Notes/Report: CLAUDY by IFA Rfx Titer/Pattern Negative Negative <1:80 Borderline 1:80 Positive >1:80 ICAP nomenclature: AC-0 For more information about Hep-2 cell patterns use ANApatterns.org, the official website for the International Consensus on Antinuclear Antibody (CLAUDY) Patterns (ICAP). ANCA Profile (RDL)-269248 Reviewed date:02/06/2025 01:47:46 PM Interpretation: Performing Lab:[facility] [place], [address] [place] [address], [place], Phone - [phone], Director - Silva Notes/Report: ANCA by IFA (RDL) Negative Negative Anti-MPO Ab (RDL) <20 <20 Units Anti-ND-3 Ab (RDL) 24 <20 Units US Renal [...] Signed by: FRANKIE JOHNSON II, MD Urinalysis, Complete-049557 Reviewed date:02/18/2025 06:36:48 PM Interpretation: Performing Lab:[facility], [address] [place] [address], Phone - [phone], Director - Silva Notes/Report: Specific [place] 1.016 1.005-1.030 pH 6.0 5.0-7.5 Urine-Color Yellow [...] Bacteria None seen None seen/Few Albumin/Creatinine Ratio,Uri ne-954867 Reviewed date:02/18/2025 06:36:49 PM Interpretation: Performing Lab:[facility], [address] [place] [address], Phone - [phone], Director - Silva Notes/Report: Creatinine, Urine 73.4 Not Estab. mg/dL Albumin, Urine 10.3 Not Estab. ug/mL Alb/Creat Ratio 14 0-29 mg/g creat Normal: 0 - 29 Moderately increased: 30 - 300 Severely increased: >300 Comp. Metabolic Panel (14)-3 15182 Reviewed date:02/18/2025 06:36:49 PM Interpretation: Performing Lab:[facility], [address] [place] [address], Phone - [phone], Director - Silva Notes/Report: Glucose 86 70-99 [...] 0-40 IU/L ALT (SGPT) 16 0-44 IU/L LP+Non-HDL Cholesterol-82155 5 Reviewed date:08/25/2025 02:28:50 PM Interpretation: Performing Lab:[facility] [place], [address] [facility], [place], Phone - [phone], Director - MDMikoy Notes/Report: Cholesterol, Total 183 100-199 mg/dL Triglycerides 147 0-149 mg/dL HDL Cholesterol 69 >39 mg/dL VLDL Cholesterol Jaret 25 5-40 mg/dL LDL Chol Calc (NIH) 89 0-99 mg/dL Non-HDL Cholesterol 114 0-129 mg/dL Comp. Metabolic Panel (14)-3 02127 Reviewed date:08/25/2025 02:28:50 PM Interpretation: Performing Lab:[facility] [place], [address], [place], Phone - [phone], Director - MDJoy Notes/Report: Glucose 124 70-99 mg/dL BUN 33 [...] ALT (SGPT) 21 0-44 IU/L Vitamin D, 70-Sojzlhp-224759 Reviewed date:08/25/2025 02:28:50 PM Interpretation: Performing Lab:[facility] [place], [facility], Phone - [phone], Director - Silva Notes/Report: Vitamin D, 25-Hydroxy 13.9 30.0-100.0 ng/mL Vitamin D deficiency has been defined by the [place] of Medicine and an Endocrine Society practice guideline as a level of serum 25-OH vitamin D less than 20 ng/mL (1,2). The Endocrine Society went on to further define vitamin D insufficiency as a level between 21 and 29 ng/mL (2). 1. IOM ([place] of Medicine). 2010. Dietary reference intakes for calcium and D. [place]: The National Academies Press. 2. Alissa MF, Michael GREEN, Vincenzo RODRIGUES, et al. Evaluation, treatment, and prevention of vitamin D deficiency: an Endocrine Society clinical practice guideline. JCEM. 2010; 96(7):1911-30. Prostate-Specific Ag-560867 Reviewed date:08/25/2025 02:28:50 PM Interpretation: Performing Lab:[facility] [place], [address] [place] [address], Phone - [phone], Director - Silva Notes/Report: Prostate Specific Ag 3.3 0.0-4.0 ng/mL Nichelle ECLIA methodology. . According to the [place] U[employer] Association, Serum PSA should decrease and [...] absence of malignant disease. CBC With Differential/Platel et-081131 Reviewed date:08/25/2025 02:28:50 PM Interpretation: Performing Lab:[facility] [place], [facility], [place], Phone - [phone], Director - Silva Notes/Report: WBC 5.7 3.4-10.8 x10E3/uL RBC 4.51 [...] % Immature Grans (Abs) 0.0 0.0-0.1 x10E3/uL Reason For Referral No Information Medications Medication [...] Vaccine Route Administration Date Status Comme nts *Immfspiey-Ybhmmdp-Ubrb Dose-65+ IM Intramuscular 07/11/2024 Administered *Dlezdodod-Lgffobi-Qlwl Dose-65+ Unknown 08/19/2025 Refused *Influenza-Medicare-AS Unknown 08/18/2019 Refused *Influenza-Medicare-AS IM Intramuscular 06/07/2021 Adminis tered *Influenza-Medicare-AS Unknown 06/05/2022 Refused *Influenza-Medicare-AS IM Intramuscular 06/26/2022 Adminis tered *Influenza-Quadrivalent IM Intramuscular 07/09/2023 Admini stered *PREVNAR 20 IM Intramuscular 07/11/2024 Administered *Tdap Unknown 08/30/2016 Administered COVID 19 (Pfizer 12+) Unknown 02/28/2022 Administered COVID COMIRNATY Pfizer Unknown 09/12/2023 Administered COVID-19 Pfizer BiValent Booster Unknown 06/02/2022 Administered HIPRQ-42-Vqvjtc Vaccine Unknown 10/11/2020 Administered KTKDP-44-Pkoljr Vaccine Unknown 11/01/2020 Administered HQIOJ-29-Wtgifc Vaccine Unknown 06/17/2021 Administered Influenza Unknown 07/07/2020 [...] Status Risk Notes Problem Vitamin D deficiency (47953292) Vitamin D deficiency, unspecified (E55.9) Active confirmed Problem Mixed hyperlipidemia (659324784) Mixed hyperlipidemia (E78.2) Active confirmed Problem Sedative, hypnotic or anxiolytic dependence, 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 Problem Anxiety disorder (819239348) Anxiety disorder, unspecified (F41.9) Active confirmed Problem Acute stress reaction (68719390) Acute stress reaction (F43.0) Active confirmed Problem Adjustment disorder with depressed mood (34939657) Adjustment disorder with depressed mood (F43.21) Active confirmed Problem Sensorineural hearing loss of bilateral ears (disorder) (983194327) Sensorineural hearing loss, bilateral (H90.3) Active confirmed Problem Presbycusis (45281071) Presbycusis, bilateral (H91.13) Active confirmed Problem Chronic kidney disease due to hypertension (652192989517087) Hypertensive chronic kidney disease with stage 1 through stage 4 chronic kidney disease, or unspecified chronic kidney disease (I12.9) Active confirmed Problem Atrial premature depolarization (376699336) Atrial premature depolarization (I49.1) Active confirmed Problem Ventricular premature depolarization (173898153) Ventricular premature depolarization (I49.3) Active confirmed Problem Erectile dysfunction (disorder) (027271151) Male erectile dysfunction, unspecified (N52.9) Active confirmed Problem Family history of malignant neoplasm of prostate (375987293) Family history of malignant neoplasm of prostate (Z80.42) Active confirmed Problem Lower urinary tract symptoms due to benign prostatic hypertrophy (60133922479686) Benign prostatic hyperplasia with lower urinary tract symptoms (N40.1) Active confirmed Problem Prediabetes (511556729) Prediabetes (R73.03) Active confirmed Problem Chronic kidney disease stage 3A (disorder) (662840924) Chronic kidney disease, stage 3a (N18.31) Active confirmed Problem Chronic kidney disease stage 3B (disorder) (582905581) Chronic kidney disease, stage 3b (N18.32) Active confirmed Problem Chronic kidney disease stage 2 (128150909) Chronic kidney disease, stage 2 (mild) (N18.2) Inactive confirmed Problem Cellulitis of finger of right hand (9860210847190171 9) Cellulitis of right finger (L03.011) Problem resolved confirmed Vital Signs Heart Rate 74 /min 08/19/2025 Temperature 96.4 degrees Fahrenheit 08/19/2025 Oximetry 91 % 08/19/2025 Blood pressure diastolic 60 mm Hg 08/19/2025 Height 71.75 in 08/19/2025 Blood pressure systolic 116 mm Hg 08/19/2025 Weight 171.5 lbs 08/19/2025 BMI 23.42 kg/m2 08/19/2025 Encounters Encounter Location Date Provider Diagnosis Ruma Tuttle MD [address] [id number] 08/19/2025 Ruma Tuttle Hypertensive chronic kidney disease [...] and Other fatigue R53.83 Ruma Tuttle MD [address] [id number] 01/12/2025 Ruma Tuttle Hypertensive chronic kidney disease with stage 1 through stage 4 chronic kidney disease, or unspecified chronic kidney disease I12.9 ; Chronic kidney disease, stage 3a N18.31 ; Prediabetes R73.03 ; Mixed hyperlipidemia E78.2 and Vitamin D deficiency, unspecified E55.9 Ruma Tuttle MD [address] [id number] 02/26/2025 Ruma Tuttle Hypertensive chronic kidney disease with stage 1 through stage 4 chronic kidney disease, or unspecified chronic kidney disease I12.9 and Chronic kidney disease, stage 3a N18.31 Ruma Tuttle MD [address] [id number] 03/26/2025 Ruma Tuttle Hypertensive chronic kidney disease with stage 1 through stage 4 chronic kidney disease, or unspecified chronic kidney disease I12.9 and Chronic kidney disease, stage 3a N18.31 Ruma Tuttle MD [address] [id number] 08/03/2025 Ruma Tuttle MD [address] [id number] 07/07/2025 Ruma Tuttle MD [address] [id number] 04/10/2025 Ruma Tuttle MD [address] [id number] 02/26/2025 Ruma Tuttle MD [address] [id number] 02/12/2025 Ruma Tuttle Chronic kidney disea se, stage 3a N18.31 Ruma Tuttle MD [address] [id number] 02/09/2025 Ruma Tuttle MD [address] [id number] 01/21/2025 Ruma Tuttle MD [address] [id number] 01/14/2025 Ruma Tuttle Chronic kidney disea se, stage 3b N18.32 and Hypertensive chronic kidney disease with stage 1 through stage 4 chronic kidney disease, or unspecified chronic kidney disease I12.9 Ruma Tuttle MD [address] [id number] 10/30/2024 Mari Tuttle MD [address] [id number] 10/08/2024 Ruma Tuttle Hypertensive chronic kidney disease with stage 1 through stage 4 chronic kidney disease, or unspecified chronic kidney disease I12.9 Assessments Encounter Date Diagnosis (ICD Code) Assessment [...] we will continue with current medical therapy. 01/14/2025 Chronic kidney disease, stage 3b (ICD-10 - N18.32) 02/12/2025 Chronic kidney disease, stage 3a (ICD-10 [...] additional lab test to evaluate true GFR 08/19/2025 Hypertensive chronic kidney disease with stage [...] to life support dialysis and feeding tubes. 08/19/2025 Chronic kidney disease, stage 2 (mild) (ICD-10 - N18.2) His GFR had been in the 70s and now in the upper 40s. Continue control of comorbidity of hypertension recheck status 01/14/2025 Hypertensive chronic kidney disease with stage [...] in primary prevention strategy at this age. 08/19/2025 Prediabetes (ICD-10 - R73.03) Stable on prior labs reviewed. Recheck status and continue exercise which he is doing. 08/19/2025 Mixed hyperlipidemia (ICD-10 - E78.2) Stable on prior labs reviewed. There may be no benefit for primary prophylaxis at this age. His LDL is less than 100. 01/12/2025 Vitamin D deficiency, unspecified (ICD-10 - E55.9) Fair control and prior labs reviewed. Recommend vitamin D supplementation for goal level of 30+ 08/19/2025 Family history of malignant neoplasm of [...] Provider Name:Ruma Tuttle , 02/16/2026 02:00:00 PM, [address] [place] [address], [address], [place], [place], [phone], Provider Name:Ruma Tuttle , 08/31/2026 02:00:00 PM, [address] [facility], [address], [place], [place], [phone], Insurance Providers Payer Name Payer Address Payer Phone Subscriber Number Group Number Insured Name Patient Relationship to Insured Coverage Start Date Coverage End Date MEDICARE [address] [place] [phone] [id number] Baltazar Hart Self - patient is the insured [facility] MEDEX [address] [place] [address] [phone] [id number] Baltazar Hart Self - patient is the insured Medical (General) History Medical History History ICD Code Essential (primary) hypertension I10 Cellulitis of right finger (resolved ) undefined Surgical History Surgery Date(Month/Year) Hernia repair cataract-lens implants bilateral laser eye surgery Hospitalization History Reason Date(Month/Year)
--- OUTSIDE RECORDS SUMMARY | 2025-08-27 15:19 | XMS_ITS | Clinical Summary ---
Author Organization [facility] Address [address] [address] Phone Care Team Providers Care Training Executive Name Role Phone Cassandra Tuttle MD Primary Care Provider [phone] Allergies No known active allergies Medications cephalexin [...] Insurance [place] A [place] [phone] [employer] MEDEX SUPPLEMENT MEDICARE PART A & B [employer] MEDEX SUPPLEMENT MEDICARE PART A & B [employer] MEDEX SUPPLEMENT MEDICARE PART A & B [employer] MEDEX SUPPLEMENT MEDICARE PART A & B [employer] MEDEX SUPPLEMENT MEDICARE PART A & B [employer] MEDEX SUPPLEMENT MEDICARE PART A & B [employer] MEDEX SUPPLEMENT MEDICARE PART A & B [employer] MEDEX SUPPLEMENT MEDICARE PART A & B [employer] SUPPLEMENT Care Teams Training Executive Relationship Specialty Start Date End Date Cassandra Tuttle MD [address] [address] [email or web address] PCP - General Internal Medicine 01/31/21 Additional Source Comments The information contained in this document represents components of the legal health record. It is not the complete legal health record.[facility]
== END 2025-08-25 11:37 | disposition home or self-care (01) ==
LOC: HO.HOSX 11:36
PROVIDERS: Visit Provider Orthopaedic Surgery
DX: Z47.89 Encounter for other orthopedic aftercare (principal); S62.631D Displaced fracture of distal phalanx of left index finger, subsequent encounter for fracture with routine healing; W23.0XXD Caught, crushed, jammed, or pinched between moving objects, subsequent encounter
CPT/HCPCS: 73130